=== PATIENT | female | born 1960 | race Caucasian/White ===

== ENCOUNTER → 2017-07-08 08:24 | Outpatient (POV) | payer BC, SELFPAY | PROVIDERS: Family Provider Internal Medicine; Visit Provider Nurse Practitioner Acute Care | DX: Z00.00 Encounter for general adult medical examination without abnormal findings (principal) ==

== ENCOUNTER → 2018-04-15 09:49 | Outpatient (CLI) | payer BC, SELFPAY ==
--- NOTE | 2018-04-15 09:50 | MM_ITS ---
MM Dig screening mamm BI w/CAD ORDERING PHYSICIAN : Paul Goodson MD PATIENT AGE: 58 years GENDER: Female COMPARISON: Bilateral mammogram March 20152016 INDICATION: ITS.REASON: SCREENING patient takes Premarin & estrogen. ( Estradiol)/. Previous cyst aspiration left breast. No new complaints. Family history. Aunt with breast cancer TECHNIQUE: Standard CC and MLO images were obtained. R2 CAD reviewed. Additional axillary cc views bilaterally included in helpful FINDINGS: Dense breast bilaterally decreased sensitivity of mammography.. Ultrasound can be useful compliment slight augment to mammography in breast of this dense character. However No discrete or significant new areas of concern. No unique or dominant mass . No suspicious calcifications. It The dense mammogram pattern is similar to previous studies with no focal new areas of concern. Follow-up in one year the adequate. IMPRESSION: . dense heterogeneous breast bilaterally decreases to the mammography but no significant new areas concern. Bilateral follow-up one year recommended BI-RADS Category: 2 Benign Finding(s) RECOMMENDED FOLLOW-UP: 1YR 1 YEAR FOLLOW-UP (A letter has been sent to the patient regarding results of the study.)
== END ==
PROVIDERS: PCP Internal Medicine; Visit Provider Obstetrics & Gynecology
DX: Z12.31 Encounter for screening mammogram for malignant neoplasm of breast (principal)
CPT/HCPCS: 77067

== ENCOUNTER → 2018-07-11 10:39 | Outpatient (CLI) | payer BC, SELFPAY ==
--- NOTE | 2018-07-11 10:46 | XR_ITS ---
EXAM: XR cervical spine 5V HISTORY: ITS.REASON: NECK PAIN, LT ARM PAIN ORDERING PHYSICIAN: Rashawn Ervin PATIENT AGE: 58 years COMPARISON: None FINDINGS: There is mild degenerative disc disease at C4-C5, C5-C6, and C6-C7. There are small endplate osteophytes at these levels with decrease in the disc spaces. There is mild foraminal narrowing on the left at C5-C6 and C6-C7. Facet hypertrophic changes are present from C4 to C7. No fracture or dislocation. No lytic or blastic change. No evidence of cervical rib. IMPRESSION: Degenerative disc disease with facet arthritic change as described above with mild foraminal narrowing on the left at C5-C6 and C6-C7
== END ==
PROVIDERS: PCP Internal Medicine; Visit Provider Internal Medicine
DX: M54.2 Cervicalgia (principal); M79.602 Pain in left arm
CPT/HCPCS: 72050

== ENCOUNTER → 2018-07-14 08:25 | Outpatient (POV) | payer BC, SELFPAY | PROVIDERS: Visit Provider Nurse Practitioner Acute Care | DX: Z00.00 Encounter for general adult medical examination without abnormal findings (principal) ==

== ENCOUNTER 2018-09-19 11:00 | Outpatient (RCR) | payer BC, SELFPAY ==
--- NOTE | 2018-09-02 09:35 | HMH.RHREAS ---
Rehab Reassessment Rehab OP Re-assessment Start: 09/02/18 09:16 Freq: Status: Active Protocol: Document 09/02/18 09:20 CELSOTRISTAN (Rec: 09/02/18 09:34 SOLANGE [id number]) Electronically Signed By Rogerio Montenegro, PT 09/02/18 09:20 Rehab Re-assessment Subjective Subjective PT REPORTS 4-7/10 L SIDED NECK PAIN ON VAS, AND FEELS 50% BETTER OVERALL SINCE I EVAL Objective Objective Notes AROM: CROM FLX 0-55, EXT 0-55, R SB 0-40, L SB 0-40, B ROT 0 -55 MMT: B DELTOID MM 4-4+/5 TTP: L UT 2-3/4, L SCALENE 3/4 , L SUBOCC. 2/4 Assessment Progress Assessment Slower Than Expected Assessment Notes PT W/SLIGHT IMPROVEMENTS IN ROM AND STRENGTH Patient goals met STG'S 6 LTG'S 06/24 Goals Not Met STG'S 08/20, LTG'S 12/22 Plan Plan PT TO CONT. W/SKILLED P.T. TO MAKE FURTHER IMPROVEMENTS IN ROM, STRENGTH, AND TTP TO ALLOW FOR OPTIMAL FUNCTION Frequency of Therapy 1-2X/WK Duration of therapy 3-4 WKS Time and Billing Re-Eval Time 15 Re-Eval Billing Units 1 PHYSICIAN CERTIFICATION: I certify the specified therapy services for Cintia Ritchie are required, authorized, and reviewed every 30 days.
== END 2018-09-19 11:05 | disposition home or self-care (01) ==
LOC: PT 11:00
PROVIDERS: Visit Provider Internal Medicine
DX: M54.2 Cervicalgia (principal); M79.645 Pain in left finger(s); R51 Headache
CPT/HCPCS: 97010; 97014; 97035; 97110; 97140; 97163; 97164; G0283

== ENCOUNTER → 2018-09-24 10:45 | Outpatient (CLI) | payer BC, SELFPAY ==
--- NOTE | 2018-09-24 11:00 | MR_ITS ---
MR cervical spine wo con, MR 3-d myelogram/MRCP HISTORY: PT states left side neck and shoulder pain since JUN. Pain also extends up into head at times. ITS.REASON: CERVICALGIA ORDERING PHYSICIAN: Rashawn Ervin PATIENT AGE: 58 years Comparison: X-RAY 07/11/18 TECHNIQUE: Standard multiplanar multiecho sequences are performed without contrast. 3-D MIP and myelographic images are also rendered and reviewed FINDINGS: There is normal alignment. There is straightening of the cervical lordosis which may be due to patient positioning or muscle spasm. The craniocervical junction has an unremarkable appearance. C2-C3: Unremarkable. C3-C4: Unremarkable. C4-C5: Mild degenerative disc disease. C5-C6: Degenerative disc disease with a bulging disc along with a left paracentral disc protrusion/disc osteophyte complex. There is narrowing of the canal at this level at 10 mm with minimal effacement along the aspect of the cord and moderate left lateral recess narrowing. C6-C7: Mild degenerative disc disease with minimal bulging disc slightly eccentric toward the right with mild right lateral recess narrowing. C7-T1: Unremarkable. IMPRESSION: 1. Degenerative disc disease at C5-C6 with a bulging disc along with a left paracentral disc protrusion/disc osteophyte complex causing narrowing of the canal at this level at 10 mm with minimal flattening of the cord and moderate left lateral recess narrowing. 2. Mild degenerative disc disease at C6-C7 with minimal bulging disc slightly eccentric toward the right with mild right lateral recess narrowing
== END ==
PROVIDERS: PCP Internal Medicine; Visit Provider Internal Medicine
DX: M54.2 Cervicalgia (principal)
CPT/HCPCS: 72141; 76376

== ENCOUNTER → 2018-10-07 14:47 | Outpatient (POV) | payer BC, SELFPAY ==
[2018-10-07 15:02] VITALS: BP 147/71; PULSE 77; RESP 18; O2SAT 98
--- NOTE | 2018-10-07 15:35 | HMH.PMCON ---
Assessment and Plan (1) Degenerative disc disease, cervical Current visit: Yes Status: Chronic Category: Medical Code(s): M50.30 - Other cervical disc degeneration, unspecified cervical region (2) Cervical radiculopathy Current visit: Yes Status: Chronic Category: Medical Code(s): M54.12 - Radiculopathy, cervical region - Assessment and plan all Dx Assessment and Plan for all problems:: We will schedule the patient for C5-C6 cervical epidural steroid injection. I believe given her symptomology it would be beneficial. Patient is not on any anticoagulation therapy. I will follow-up with her after injection reassess her symptoms at that time. She is been instructed to call the office if she has any issues prior to her next appointment. Dr. Nuñez has reviewed this note and agrees with this plan of care. This note was dictated using voice recognition software and may contain errors or omissions HPI - Data of Consult Consult date: 10/07/18 Requesting Physician: Patti York APRN Primary Care Provider: Rashawn Ervin - Consult Narrative Reason for consult: Neck pain, left arm pain History of present illness: Ms. Ritchie is a 58 year old female who presents today for consultation in regards to her neck pain. She rates her pain a 4 out of 10. She states it is constant and radiating down her left arm. She has difficulty with twisting her neck. Patient has continued physical therapy with minimal relief. She has been on anti-inflammatories. Patient does have an MRI showing degenerative disc disease at C5-C6 with a bulging disc along with a left paracentral disc protrusion. Patient has not tried any injective therapies she is failed over 6 months of conservative therapy including physical therapy. She is continuing a home stretching program and is on anti-inflammatories. CC: Patti York APRN [facility] History I have reviewed the patient's past medical history: Yes Medical History: Reports:: Hyperlipidemia, Palpitations Other Medical History: Reports: Arthritis Other Surgeries: Yes: Hernia Repair, Hysterectomy-Total Amputation: No Fractures: No - *Social History Smoking Status: Never smoker Alcohol Intake: never Substance Use Type: denies use *Occupational Status:: other Housing: house *Travel in the last 8 weeks: None - Psychiatric History Expresses thoughts of harming self/others: None Suicide Plan Description: No Plan Family Hx:: Unable to obtain Review of Systems - Review of Systems ROS General: no recent weight change, no fever, no sleep disturbances Respiratory: no cough, no shortness of air, no recurring pulmonary infections Cardiovascular/Peripheral Vascular: No chest pain, No palpitations, no edema, no shortness of breath. Gastrointestinal: no incontinence, normal bowel movements reported Genitourinary: no incontinence Musculoskeletal: Neck pain, arm pain Psychiatric: normal mood/ affect, Neurological: [denies weakness in extremities], [denies balance issues] Meds Home Medications Medication Instructions Recorded Confirmed Type acyclovir 400 mg tablet 400 mg PO DAILY tab 04/03/18 04/03/18 History ascorbic acid (vitamin C) 1,000 mg 1 g PO DAILY tab 04/03/18 04/03/18 History tablet aspirin 81 mg tablet,delayed 81 mg PO DAILY 04/03/18 04/03/18 History release atorvastatin 40 mg tablet 40 mg PO DAILY 04/03/18 04/03/18 History buspirone 10 mg tablet 10 mg PO BID 04/03/18 04/03/18 History calcium carbonate 600 mg calcium 600 mg PO DAILY tab 04/03/18 04/03/18 History (1,500 mg) tablet cetirizine 10 mg tablet 10 mg PO DAILY 04/03/18 04/03/18 History cyanocobalamin (vit B-12) 5,000 5,000 mcg SUBLINGUAL DAILY 04/03/18 04/03/18 History mcg sublingual tablet estradiol 1 mg tablet 1 mg PO DAILY 90 Days #90 tab 04/03/18 04/03/18 Rx glucosam 750 mg-chondroi 100 See Rx Instructions PO DAILY 04/03/18 04/03/18 History mg-hyalur 1.65 mg-CF borate 108 mg tab
--- NOTE | 2018-10-07 15:38 | P.CONS_ITS ---
Assessment and Plan (1) Degenerative disc disease, cervical Current visit: Yes Status: Chronic Category: Medical Code(s): M50.30 - Other cervical disc degeneration, unspecified cervical region (2) Cervical radiculopathy Current visit: Yes Status: Chronic Category: Medical Code(s): M54.12 - Radiculopathy, cervical region - Assessment and plan all Dx Assessment and Plan for all problems:: We will schedule the patient for C5-C6 cervical epidural steroid injection. I believe given her symptomology it would be beneficial. Patient is not on any anticoagulation therapy. I will follow-up with her after injection reassess her symptoms at that time. She is been instructed to call the office if she has any issues prior to her next appointment. Dr. Nuñez has reviewed this note and agrees with this plan of care. This note was dictated using voice recognition software and may contain errors or omissions HPI - Data of Consult Consult date: 10/07/18 Requesting Physician: Patti York APRN Primary Care Provider: Rashawn Ervin - Consult Narrative Reason for consult: Neck pain, left arm pain History of present illness: Ms. Ritchie is a 58 year old female who presents today for consultation in regards to her neck pain. She rates her pain a 4 out of 10. She states it is constant and radiating down her left arm. She has difficulty with twisting her neck. Patient has continued physical therapy with minimal relief. She has been on anti-inflammatories. Patient does have an MRI showing degenerative disc disease at C5-C6 with a bulging disc along with a left paracentral disc protrusion. Patient has not tried any injective therapies she is failed over 6 months of conservative therapy including physical therapy. She is continuing a home stretching program and is on anti-inflammatories. CC: Patti York APRN [facility] History I have reviewed the patient's past medical history: Yes Medical History: Reports:: Hyperlipidemia, Palpitations Other Medical History: Reports: Arthritis Other Surgeries: Yes: Hernia Repair, Hysterectomy-Total Amputation: No Fractures: No - *Social History Smoking Status: Never smoker Alcohol Intake: never Substance Use Type: denies use *Occupational Status:: other Housing: house *Travel in the last 8 weeks: None - Psychiatric History Expresses thoughts of harming self/others: None Suicide Plan Description: No Plan Family Hx:: Unable to obtain Review of Systems - Review of Systems ROS General: no recent weight change, no fever, no sleep disturbances Respiratory: no cough, no shortness of air, no recurring pulmonary infections Cardiovascular/Peripheral Vascular: No chest pain, No palpitations, no edema, no shortness of breath. Gastrointestinal: no incontinence, normal bowel movements reported Genitourinary: no incontinence Musculoskeletal: Neck pain, arm pain Psychiatric: normal mood/ affect, Neurological: [denies weakness in extremities], [denies balance issues] Meds Home Medications Medication Instructions Recorded Confirmed Type acyclovir 400 mg tablet 400 mg PO DAILY tab 04/03/18 04/03/18 History ascorbic acid (vitamin C) 1,000 mg 1 g PO DAILY tab 04/03/18 04/03/18 History tablet aspirin 81 mg tablet,delayed 81 mg PO DAILY 04/03/18 04/03/18 History release atorvastatin 40 mg tablet 40 mg PO DAILY 04/03/18 04/03/18 History buspirone 10 mg tablet 10 mg PO BID 04/03/18
== END ==
PROVIDERS: PCP Internal Medicine; Visit Provider Clinical Nurse Specialist Family Health
DX: M50.10 Cervical disc disorder with radiculopathy, unspecified cervical region (principal)
CPT/HCPCS: 99202

== ENCOUNTER → 2018-11-03 15:02 | Outpatient (POV) | payer BC, SELFPAY ==
[2018-11-03 15:19] VITALS: BP 154/72; PULSE 67; RESP 18; O2SAT 98; BMI 25.0
--- NOTE | 2018-11-03 15:35 | HMH.PAINSOAP ---
[facility] Pain Management SOAP Note Subjective:: Presents today today for follow-up after her first cervical epidural steroid injection. Patient is doing much better. Patient is gotten 80% relief of her symptoms she rates her pain a 2 out of 10 today. Patient and I discussed repeating this to see if we can get some additional benefit. Is continuing a home stretching program and anti-inflammatories. ROS General: no recent weight change, no fever, no sleep disturbances Respiratory: no cough, no shortness of air, no recurring pulmonary infections Cardiovascular/Peripheral Vascular: No chest pain, No palpitations, no edema, no shortness of breath. Gastrointestinal: no incontinence, normal bowel movements reported Genitourinary: no incontinence Musculoskeletal: [Neck pain, left arm pain Psychiatric: normal mood/ affect Neurological: [denies weakness in extremities], [denies balance issues] Objective:: Physical Exam General: Alert and oriented x3, no acute distress, pleasant and cooperative, [on room air] Lungs: Resps E/U, Symmetrical chest expansion, Eyes: PERRL Musculoskeletal: Flexion and extension of cervical spine somewhat guarded secondary to pain, deep tendon reflexes normal, strength in upper and lower extremities [5/5], normal gait noted Neurological: speech clear, power generation technician equal, no gross sensory deficits Assessment:: Degenerative disc disease cervical spine with cervical radiculopathy Plan:: We will schedule the patient for C5-C6 cervical epidural steroid injection. I believe given the efficacy of this in the past it would be beneficial. I will follow-up with the patient and reassess her symptoms after her injection. She is not on any anticoagulation therapy. Dr. Nuñez has reviewed this note and agrees with this plan of care. This note was dictated using voice recognition software and may contain errors or omissions
--- NOTE | 2018-11-03 15:38 | P.CONS_ITS ---
[facility] Pain Management SOAP Note Subjective:: Presents today today for follow-up after her first cervical epidural steroid injection. Patient is doing much better. Patient is gotten 80% relief of her symptoms she rates her pain a 2 out of 10 today. Patient and I discussed repeating this to see if we can get some additional benefit. Is continuing a home stretching program and anti-inflammatories. ROS General: no recent weight change, no fever, no sleep disturbances Respiratory: no cough, no shortness of air, no recurring pulmonary infections Cardiovascular/Peripheral Vascular: No chest pain, No palpitations, no edema, no shortness of breath. Gastrointestinal: no incontinence, normal bowel movements reported Genitourinary: no incontinence Musculoskeletal: [Neck pain, left arm pain Psychiatric: normal mood/ affect Neurological: [denies weakness in extremities], [denies balance issues] Objective:: Physical Exam General: Alert and oriented x3, no acute distress, pleasant and cooperative, [on room air] Lungs: Resps E/U, Symmetrical chest expansion, Eyes: PERRL Musculoskeletal: Flexion and extension of cervical spine somewhat guarded secondary to pain, deep tendon reflexes normal, strength in upper and lower extremities [5/5], normal gait noted Neurological: speech clear, rescue boat operator equal, no gross sensory deficits Assessment:: Degenerative disc disease cervical spine with cervical radiculopathy Plan:: We will schedule the patient for C5-C6 cervical epidural steroid injection. I believe given the efficacy of this in the past it would be beneficial. I will follow-up with the patient and reassess her symptoms after her injection. She is not on any anticoagulation therapy. Dr. Nuñez has reviewed this note and agrees with this plan of care. This note was dictated using voice recognition software and may contain errors or omissions
== END ==
PROVIDERS: PCP Internal Medicine; Visit Provider Clinical Nurse Specialist Family Health
DX: M50.10 Cervical disc disorder with radiculopathy, unspecified cervical region (principal)
CPT/HCPCS: 99212

== ENCOUNTER → 2018-12-08 12:30 | Outpatient (POV) | payer BC, SELFPAY ==
--- NOTE | 2018-12-08 13:10 | HMH.PAINSOAP ---
[facility] Pain Management SOAP Note Subjective:: Patient is an extremely pleasant 58-year-old white female who presents today for follow-up after second cervical epidural steroid injection. Patient has had a relief of the numbness and tingling in her left arm. Patient is now having difficulty looking down for longer periods of time she is been crocheting which is painful for her. She does have palpable trigger points in her cervical paraspinous on the left side. Patient and I discussed trigger point injections. She rates her pain a 3 out of 10 today but it can go up to an 8 out of 10. ROS General: no recent weight change, no fever, no sleep disturbances Respiratory: no cough, no shortness of air, no recurring pulmonary infections Cardiovascular/Peripheral Vascular: No chest pain, No palpitations, no edema, no shortness of breath. Gastrointestinal: no incontinence, normal bowel movements reported Genitourinary: no incontinence Musculoskeletal: Myofascial pain Psychiatric: normal mood/ affect Neurological: [denies weakness in extremities], [denies balance issues] Objective:: Physical Exam General: Alert and oriented x3, no acute distress, pleasant and cooperative, Lungs: Resps E/U, Symmetrical chest expansion, Eyes: PERRL Musculoskeletal: Flexion and extension of cervical spine somewhat guarded secondary to pain, deep tendon reflexes normal, strength in upper and lower extremities [5/5], normal gait noted, trigger points palpated in left cervical paraspinous Neurological: speech clear, hospitality services manager equal, no gross sensory deficits Assessment:: Myofascial pain syndrome, degenerative disc disease cervical spinal cervical radiculopathy symptoms Plan:: We will schedule left cervical paraspinous trigger point for the patient. I believe it would be beneficial for her. She is gotten good relief from her epidurals in regards to her tingling. I will follow-up with her after her injection and reassess her symptoms at that time. Dr. Nuñez has reviewed this note and agrees with this plan of care. This note was dictated using voice recognition software and may contain errors or omissions
--- NOTE | 2018-12-08 13:14 | P.CONS_ITS ---
[facility] Pain Management SOAP Note Subjective:: Patient is an extremely pleasant 58-year-old white female who presents today for follow-up after second cervical epidural steroid injection. Patient has had a relief of the numbness and tingling in her left arm. Patient is now having difficulty looking down for longer periods of time she is been crocheting which is painful for her. She does have palpable trigger points in her cervical paraspinous on the left side. Patient and I discussed trigger point injections. She rates her pain a 3 out of 10 today but it can go up to an 8 out of 10. ROS General: no recent weight change, no fever, no sleep disturbances Respiratory: no cough, no shortness of air, no recurring pulmonary infections Cardiovascular/Peripheral Vascular: No chest pain, No palpitations, no edema, no shortness of breath. Gastrointestinal: no incontinence, normal bowel movements reported Genitourinary: no incontinence Musculoskeletal: Myofascial pain Psychiatric: normal mood/ affect Neurological: [denies weakness in extremities], [denies balance issues] Objective:: Physical Exam General: Alert and oriented x3, no acute distress, pleasant and cooperative, Lungs: Resps E/U, Symmetrical chest expansion, Eyes: PERRL Musculoskeletal: Flexion and extension of cervical spine somewhat guarded secondary to pain, deep tendon reflexes normal, strength in upper and lower extremities [5/5], normal gait noted, trigger points palpated in left cervical paraspinous Neurological: speech clear, ice skating coach equal, no gross sensory deficits Assessment:: Myofascial pain syndrome, degenerative disc disease cervical spinal cervical radiculopathy symptoms Plan:: We will schedule left cervical paraspinous trigger point for the patient. I believe it would be beneficial for her. She is gotten good relief from her epidurals in regards to her tingling. I will follow-up with her after her injection and reassess her symptoms at that time. Dr. Nuñez has reviewed this note and agrees with this plan of care. This note was dictated using voice recognition software and may contain errors or omissions
[2018-12-08 13:23] VITALS: BP 148/74; PULSE 77; RESP 18; O2SAT 98; BMI 25.0
== END ==
PROVIDERS: PCP Internal Medicine; Visit Provider Clinical Nurse Specialist Family Health
DX: M79.18 Myalgia, other site (principal); M50.10 Cervical disc disorder with radiculopathy, unspecified cervical region
CPT/HCPCS: 99212

== ENCOUNTER → 2019-01-06 10:41 | Outpatient (POV) | payer BC, SELFPAY ==
--- NOTE | 2019-01-06 11:48 | HMH.PAINSOAP ---
[facility] Pain Management SOAP Note Subjective:: Patient is a pleasant 58-year-old white female who presents today for follow-up. Patient is being treated for neck pain radiating in to her head causing headaches.. Patient has had trigger point injections, dry needling, along with cervical epidural steroid injections. She has had limited relief with these injections. She says that she is continuing to have pain in the upper part of her neck radiating into her head. She says it is worse when she is turning her neck. She also says I do not know what triggers it . Patient says she has some good days and some bad days. She says that she got about 40% relief with her previous injections. She does rate her pain a 2 out of 10 today. She does say that yesterday, however, her pain was a 10 out of 10. She would like to discuss other possible options for pain relief. Review of Systems General: No recent weight changes, no fever, no sleep disturbances Respiratory: No cough, no shortness of air, no recurring pulmonary infections Cardiovascular/peripheral vascular: No chest pain, no palpitations, no edema, no shortness of breath Gastrointestinal: No new onset incontinence, normal bowel movements reported Genitourinary: No new onset incontinence Musculoskeletal: Neck pain Psychiatric: Normal mood/affect Neurological: [Denies weakness in extremities], [denies balance issues] Objective:: Physical exam General: Alert and oriented x3, no acute distress, pleasant and cooperative, [on room air] Lungs: Respirations even and unlabored, symmetrical chest expansion Eyes: PERRL Musculoskeletal: Flexion and extension of [cervical] spine somewhat guarded secondary to pain, deep tendon reflexes normal, strength in upper and lower extremities [5/5], [abnormal gait noted] Neurological: Speech clear, tractor operator laser leveling equal, no gross sensory deficit Assessment:: Myofascial pain syndrome, degenerative disc disease cervical spine with cervical radiculopathy symptoms. Plan:: We will schedule the patient for bilateral occipital nerve block. She is not on any anticoagulation therapy. She is continuing with a home stretching program and anti-inflammatories. We will see her back after her procedure to reassess her symptoms at that time. She has been instructed to call the office if she has any concerns prior to her next appointment.
[2019-01-06 11:58] VITALS: BP 138/69; PULSE 74; RESP 18; O2SAT 98; BMI 25.0
== END ==
PROVIDERS: PCP Internal Medicine; Visit Provider Clinical Nurse Specialist Family Health
DX: M79.18 Myalgia, other site (principal); M50.10 Cervical disc disorder with radiculopathy, unspecified cervical region
CPT/HCPCS: 99212

== ENCOUNTER → 2019-02-23 09:34 | Outpatient (POV) | payer BC, SELFPAY ==
[2019-02-23 10:06] VITALS: BP 126/63; PULSE 77; RESP 18; O2SAT 98; BMI 24.3
--- NOTE | 2019-02-23 14:45 | P.CONS_ITS ---
[facility] Pain Management SOAP Note Subjective:: Patient is a pleasant 59-year-old white female who presents today for follow-up after left occipital nerve block. She is rates her pain a 2 out of 10 states she is doing better. Patient has thought about a neurostimulator however at this time she is doing well with the injections. We also discussed potentially utilizing yoga and cervical traction. Patient has doing much better than she was when she first arrived stating that all of her radicular symptoms in her arm have dissipated most of her pain is in the left side and she has quite a few headaches. ROS General: no recent weight change, no fever, no sleep disturbances Respiratory: no cough, no shortness of air, no recurring pulmonary infections Cardiovascular/Peripheral Vascular: No chest pain, No palpitations, no edema, no shortness of breath. Gastrointestinal: no incontinence, normal bowel movements reported Genitourinary: no incontinence Musculoskeletal: Neck pain, headaches Psychiatric: normal mood/ affect, Neurological: [denies weakness in extremities], [denies balance issues] Objective:: Physical Exam General: Alert and oriented x3, no acute distress, pleasant and cooperative, [on room air] Lungs: Resps E/U, Symmetrical chest expansion, Eyes: PERRL Musculoskeletal: Flexion and extension of cervical spine somewhat guarded secondary to pain, deep tendon reflexes normal, strength in upper and lower extremities [5/5], normal gait noted Neurological: speech clear, medical/surgery registered nurse equal, no gross sensory deficits Assessment:: Occipital neuralgia, neck pain Plan:: We will schedule repeat left occipital nerve block given the efficacy of this in the past. I will follow-up with the patient after her injection reassess her symptoms at that time she is been instructed to call the office if she has any issues prior to her next appointment. Dr. Nuñez has reviewed this note and agrees with this plan of care. This note was dictated using voice recognition software and may contain errors or omissions Pain Management Hx Components *Have you ever received a pneumonia vaccine?: Yes *Have you received a flu vaccine this season?: Yes - *Social History *Occupational Status:: other *Travel in the last 8 weeks: None
== END ==
PROVIDERS: PCP Internal Medicine; Visit Provider Clinical Nurse Specialist Family Health
DX: M54.81 Occipital neuralgia (principal)
CPT/HCPCS: 99212

== ENCOUNTER → 2019-03-31 09:12 | Outpatient (POV) | payer BC, SELFPAY ==
[2019-03-31 09:30] VITALS: BP 134/70; PULSE 72; RESP 18; O2SAT 97; BMI 20.7
--- NOTE | 2019-03-31 15:18 | HMH.PAINSOAP ---
[facility] Pain Management SOAP Note Subjective:: Patient is a very pleasant 59-year-old white female who presents today for follow-up after left occipital nerve block. Patient is doing well rating her pain today a 2 out of 10. Overall she is done extremely well with this injection. She she is having some pains begin to return. We discussed repeating this mid April. She is interested in pursuing that. She is not on any anticoagulation therapy. ROS General: no recent weight change, no fever, no sleep disturbances Respiratory: no cough, no shortness of air, no recurring pulmonary infections Cardiovascular/Peripheral Vascular: No chest pain, No palpitations, no edema, no shortness of breath. Gastrointestinal: no new onset incontinence, normal bowel movements reported Genitourinary: no new onset incontinence Musculoskeletal: Occipital neuralgia Psychiatric: normal mood/ affect, Neurological: [denies new onset weakness in extremities], [denies new onset balance issues] Objective:: Physical Exam General: Alert and oriented x3, no acute distress, pleasant and cooperative, [on room air] Lungs: Resps E/U, Symmetrical chest expansion, Eyes: PERRL Musculoskeletal: Flexion and extension of cervical spine somewhat guarded secondary to pain, deep tendon reflexes normal, strength in upper and lower extremities [5/5], normal gait noted Neurological: speech clear, presales senior specialist equal, no gross sensory deficits Assessment:: Occipital neuralgia Plan:: We will plan on a left occipital nerve block in the middle of April. Patient's been instructed to call the office if she has any issues prior to her next appointment. Dr. Nuñez has reviewed this note and agrees with this plan of care. This note was dictated using voice recognition software and may contain errors or omissions [facility] History I have reviewed the patient's past medical history: Yes Medical History: Reports:: Hyperlipidemia, Palpitations Denies:: Cancer, Diabetes Mellitus Type 1, Diabetes Mellitus Type 2, MRSA, Seizures *Have you ever received a pneumonia vaccine?: No *Have you received a flu vaccine this season?: No Other Medical History: Reports: Arthritis Other Surgeries: Yes: Hernia Repair, Hysterectomy-Total, Hysterectomy-Partial Amputation: No Fractures: No - *Social History Smoking Status: Never smoker Alcohol Intake: never Substance Use Type: denies use *Occupational Status:: employed Housing: house Household Members: family *Travel in the last 8 weeks: None Family Hx:: Unable to obtain
== END ==
PROVIDERS: PCP Internal Medicine; Visit Provider Clinical Nurse Specialist Family Health
DX: M54.81 Occipital neuralgia (principal)
CPT/HCPCS: 99212

== ENCOUNTER → 2019-04-21 07:52 | Outpatient (CLI) | payer BC, SELFPAY ==
--- NOTE | 2019-04-21 07:56 | MM_ITS ---
PROCEDURE: MM DIG SCREENING MAMM BI W/CAD CLINICAL INDICATION: screening There is no personal or family history of breast cancer COMPARISON: DMDXUL DIG MAMM-DX UNI-LT W/CAD from 11/29/2016 DMSB DIG MAMM-SCREEN ROSENDO W/CAD from 04/10/2017 [facility] MM Dig screening mamm BI w/CAD from 04/15/2018 TECHNIQUE: Standard CC and MLO images were obtained. R2 CAD reviewed. FINDINGS: Prominent diffuse somewhat heterogenic fibroglandular densities are seen throughout both breasts somewhat lessening the sensitivity of mammography. The findings are bilateral and symmetrical. There is minimal arterial calcification right breast and benign-appearing microcalcifications left breast. There is no new or suspicious lesion in either breast and no suspicious microcalcifications. IMPRESSION: Stable moderately dense parenchymal pattern with no suspicious lesions seen BI-RAD Category: 2 Benign Finding(s) FOLLOW-UP: 1YR 1 Year Follow-up (A letter has been sent to the patient regarding results of the study.) Dictated by: Dr. Boby Plascencia MD 04/21/2019 17:[address] Boby Plascencia MD in [place] 04/21/2019 17:00
--- NOTE | 2019-04-21 07:56 | XR_ITS ---
PROCEDURE: XR DEXA AXIAL SKELETON CLINICAL HISTORY: screening COMPARISON: No exams were available for comparison FINDINGS: The L1-L4 density is 1.377 grams/centimeters sq with a T-score of 1.6 which is normal. In the lowest density in the hips is in the right femoral neck 1.004 grams/centimeters sq with a T-score of -0.2 which is within normal limits. IMPRESSION: Normal bone density with low fracture risk. Suggest follow-up exam April 2021 Dictated by: Sravan Graff MD 04/21/2019 18:41 Electronically signed by Sravan Graff MD in [place] 04/21/2019 18:41
== END ==
PROVIDERS: PCP Internal Medicine; Visit Provider Obstetrics & Gynecology
DX: Z12.31 Encounter for screening mammogram for malignant neoplasm of breast (principal); Z78.0 Asymptomatic menopausal state; Z13.820 Encounter for screening for osteoporosis
CPT/HCPCS: 77067; 77080

== ENCOUNTER → 2019-05-25 13:05 | Outpatient (POV) | payer BC, SELFPAY ==
[2019-05-25 13:20] VITALS: BP 151/59; PULSE 72; RESP 18; O2SAT 98; BMI 23.5
--- NOTE | 2019-05-25 13:39 | HMH.PAINSOAP ---
[facility] Pain Management SOAP Note Subjective:: Patient is a pleasant 59-year-old white female who presents today for follow-up after left occipital nerve block. Patient overall doing well. Her most of her pain is now in her left knee. Patient has had surgery on this knee before. Gets a burning pain on the side portion of her knee. Patient does not have any recent diagnostic imaging. Patient rates her pain a 2 out of 10. Patient is tried and failed physical therapy and anti-inflammatories. ROS General: no recent weight change, no fever, no sleep disturbances Respiratory: no cough, no shortness of air, no recurring pulmonary infections Cardiovascular/Peripheral Vascular: No chest pain, No palpitations, no edema, no shortness of breath. Gastrointestinal: no new onset incontinence, normal bowel movements reported Genitourinary: no new onset incontinence Musculoskeletal: Left knee pain Psychiatric: normal mood/ affect Neurological: [denies new onset weakness in extremities], [denies new onset balance issues] Objective:: Physical Exam General: Alert and oriented x3, no acute distress, pleasant and cooperative, [on room air] Lungs: Resps E/U, Symmetrical chest expansion, Eyes: PERRL Musculoskeletal: Range of motion left knee somewhat guarded secondary to pain, deep tendon reflexes normal, strength in upper and lower extremities [5/5], [abnormal gait noted] Neurological: speech clear, petroleum terminal plant operator equal, no gross sensory deficits Assessment:: Left knee pain Plan:: We will set up a left genicular block for the patient. I do believe given her symptomology it would be beneficial. I will follow-up with her after her injection reassess her symptoms at that time she is been instructed to call the office prior to next appointment. Also get a left knee x-ray to help determine pathology. Dr. Nuñez has reviewed this note and agrees with this plan of care. This note was dictated using voice recognition software and may contain errors or omissions [facility] History I have reviewed the patient's past medical history: Yes Medical History: Reports:: Hyperlipidemia, Hypertension, Palpitations Denies:: Cancer, Diabetes Mellitus Type 1, Diabetes Mellitus Type 2, MRSA, Seizures *Have you ever received a pneumonia vaccine?: Yes *Have you received a flu vaccine this season?: Yes Other Medical History: Reports: Arthritis Other Surgeries: Yes: Hernia Repair, Hysterectomy-Total, Hysterectomy-Partial Amputation: No Fractures: No - *Social History Smoking Status: Never smoker Alcohol Intake: never Alcohol Intake Frequency:: other Substance Use Type: denies use *Occupational Status:: other Housing: house Household Members: family *Travel in the last 8 weeks: None Family Hx:: Unable to obtain
--- NOTE | 2019-05-25 13:52 | XR_ITS ---
PROCEDURE: XR KNEE LT 3V CLINICAL INDICATION: LT KNEE PAIN COMPARISON: [id number] KNEE-4 OR 5 VIEWS-LT from 11/14/2016 [id number] KNEE-4 OR 5 VIEWS-RT from 11/14/2016 FINDINGS: No fracture or dislocation. No lytic or blastic change. There is normal mineralization. There is tricompartmental osteoarthritis greatest at the patellofemoral and medial compartment joint spaces. Other findings:There is no significant joint effusion. IMPRESSION: Osteoarthritis as described with no acute bone pathology. Dictated by: Rashawn Champagne 05/25/2019 14:15 Electronically signed by Rashawn Champagne in [place] 05/25/2019 14:15
== END ==
PROVIDERS: PCP Internal Medicine; Visit Provider Clinical Nurse Specialist Family Health
DX: M25.562 Pain in left knee (principal)
CPT/HCPCS: 73562; 99212

== ENCOUNTER → 2019-07-06 13:31 | Outpatient (POV) | payer BC, SELFPAY ==
[2019-07-06 14:40] VITALS: BP 133/75; PULSE 76; RESP 18; O2SAT 99; BMI 23.5
--- NOTE | 2019-07-07 12:21 | P.CONS_ITS ---
[facility] Pain Management SOAP Note Subjective:: Patient is a pleasant 59-year-old white female who presents today for follow-up after a left knee genicular block. Patient states that it was 9 been beneficial. Patient has had issues with her left knee on and off intermittently. Patient has not seen a orthopedic surgeon recently. I am curious if she may be a candidate for rooster comb or Synvisc injections. We will send her to Dr. Cota for an evaluation. Patient rates her pain a 6 out of 10. ROS General: no recent weight change, no fever, no sleep disturbances Respiratory: no cough, no shortness of air, no recurring pulmonary infections Cardiovascular/Peripheral Vascular: No chest pain, No palpitations, no edema, no shortness of breath. Gastrointestinal: no new onset incontinence, normal bowel movements reported Genitourinary: no new onset incontinence Musculoskeletal: Left knee pain Psychiatric: normal mood/ affect, Neurological: [denies new onset weakness in extremities], [denies new onset balance issues] Objective:: Physical Exam General: Alert and oriented x3, no acute distress, pleasant and cooperative, [on room air] Lungs: Resps E/U, Symmetrical chest expansion, Eyes: PERRL Musculoskeletal: Range of motion left knee somewhat guarded secondary to pain, deep tendon reflexes normal, strength in upper and lower extremities [5/5], [abnormal gait noted] Neurological: speech clear, optimization engineer equal, no gross sensory deficits Assessment:: Left knee pain with degenerative osteoarthritis Plan:: We will send the patient to Dr. Cota she is a candidate for booster, or Synvisc injections. I will follow-up with the patient after this reassess her symptoms at that time she is been instructed to call the office if she has any issues prior to her next appointment. Dr. Nuñez has reviewed this note and agrees with this plan of care. This note was dictated using voice recognition software and may contain errors or omissions [facility] History I have reviewed the patient's past medical history: Yes Medical History: Reports:: Hyperlipidemia, Hypertension, Palpitations Denies:: Cancer, Diabetes Mellitus Type 1, Diabetes Mellitus Type 2, MRSA, Seizures *Have you ever received a pneumonia vaccine?: Yes *Have you received a flu vaccine this season?: Yes Other Medical History: Reports: Arthritis Other Surgeries: Yes: Hernia Repair, Hysterectomy-Total, Hysterectomy-Partial Amputation: No Fractures: No - *Social History Smoking Status: Never smoker Alcohol Intake: never Alcohol Intake Frequency:: other Substance Use Type: denies use *Occupational Status:: other Housing: house Household Members: spouse, family *Travel in the last 8 weeks: None Family Hx:: Unable to obtain
== END ==
PROVIDERS: PCP Internal Medicine; Visit Provider Clinical Nurse Specialist Family Health
DX: M17.12 Unilateral primary osteoarthritis, left knee (principal); E78.5 Hyperlipidemia, unspecified; I10 Essential (primary) hypertension; R00.2 Palpitations; Z90.710 Acquired absence of both cervix and uterus
CPT/HCPCS: 99212

== ENCOUNTER → 2019-07-21 10:42 | Outpatient (CLI) | payer BC, SELFPAY ==
--- NOTE | 2019-07-21 10:47 | XR_ITS ---
PROCEDURE: XR KNEE LT 4V CLINICAL INDICATION: left knee pain Medial knee pain COMPARISON: [id number] KNEE-4 OR 5 VIEWS-LT from 11/14/2016 [id number] KNEE-4 OR 5 VIEWS-RT from 11/14/2016 XR KNEE LT 3V from 05/25/2019 FINDINGS: No fracture or dislocation. No lytic or blastic change. There is normal mineralization. Minimal osteoarthritic change is present with minimal osteoarthritis involving all 3 compartments and mild spurring of tibial spines. May be a small suprapatellar effusion. The osteoarthritis may be slightly worse compared to 11/14/2016. Other findings:None. IMPRESSION: Mild osteoarthritic changes with small suprapatellar effusion Dictated by: Sravan Graff MD 07/21/2019 18:45 Electronically signed by Sravan Graff MD in [place] 07/21/2019 18:45
== END ==
PROVIDERS: PCP Internal Medicine; Visit Provider Orthopaedic Surgery
DX: M25.562 Pain in left knee (principal)
CPT/HCPCS: 73564

== ENCOUNTER → 2019-08-10 09:18 | Outpatient (POV) | payer BC, SELFPAY | PROVIDERS: PCP Nurse Practitioner Family; Visit Provider Nurse Practitioner Family | DX: Z00.00 Encounter for general adult medical examination without abnormal findings (principal) ==

== ENCOUNTER → 2019-08-21 08:32 | Outpatient (CLI) | payer BC, SELFPAY ==
--- NOTE | 2019-08-21 08:33 | MR_ITS ---
PROCEDURE: MR KNEE LT WO CON CLINICAL INDICATION: evaluate for mensical tear Left knee pain, previous knee surgery, pain medially, knee instability COMPARISON: XR KNEE LT 4V from 07/21/2019 TECHNIQUE: Routine multiplanar multi echo sequences are performed without gadolinium enhancement. FINDINGS: The cruciate ligaments, collateral ligaments, patellar tendon, and quadriceps tendon are intact. There is a complex tear in the posterior horn medial meniscus which extends to the body of the medial meniscus. The anterior horn medial meniscus is unremarkable. The lateral meniscus has an unremarkable appearance. The patellar cartilage is preserved. There is a small knee joint effusion. Mild osteoarthritic changes are present involving the medial and lateral compartment and patellofemoral joint. There is a small area of increased T2 signal in the subarticular region of the medial femoral condyle nonspecific with slight decreased T1 signal in this area as well and could be due to early osteochondrosis. IMPRESSION: 1. Nondisplaced complex tear of the posterior horn of the medial meniscus extending into the body. 2. Osteoarthritic change with small knee joint effusion and possible early osteochondrosis versus edema from the underlying arthritic change of the medial femoral condyle Dictated by: Sravan Graff MD 08/22/2019 07:17 Electronically signed by Sravan Graff MD in [place] 08/22/2019 07:17
== END ==
PROVIDERS: PCP Internal Medicine; Visit Provider Orthopaedic Surgery
DX: M25.562 Pain in left knee (principal); G89.29 Other chronic pain; Z87.828 Personal history of other (healed) physical injury and trauma
CPT/HCPCS: 73721

== ENCOUNTER → 2019-10-31 09:00 | Outpatient (CLI) | payer BC, SELFPAY ==
--- NOTE | 2019-10-31 09:23 | ECG_ITS ---
APPROVED REPORT Exam: Resting ECG HR:65 bpm ECG Measurements Heart Rate 65 AXES LA 176 P 81 QRSd 74 QRS 65 QT 368 T 71 QTc 382 <Conclusion> Normal sinus rhythm Poor r wave progression Abnormal ECG Electronically signed by : Jorge Pastor, 11/02/2019 06:50:06
[2019-10-31 09:31] LABS: Basophils % 0.8 % (0.1-2.0); Eosinophils # 0.1 K/mm3 (0.0-0.4); Eosinophils % 2.3 % (0.1-12.0); Hematocrit 41.1 % (37.0-47.0); Hemoglobin 13.5 g/dL (12.2-16.2); Lymphocytes # 1.6 K/mm3 (0.7-4.5); Lymphocytes % 34.2 % (10-50); Mean Corpuscular HGB Conc 32.7 g/dL (31.8-35.4); Mean Corpuscular Hemoglobin 28.8 pg (27.0-31.2); Mean Corpuscular Volume 87.8 fl (81-99); Mean Platelet Volume 7.7 fl (7.4-10.4); Monocytes # 0.3 K/mm3 (0.1-1.0); Monocytes % 7.1 % (1.7-9.3); Neutrophils # 2.7 K/mm3 (1.8-7.8); Neutrophils % 55.5 % (37.0-80.0); Platelet Count 266 K/mm3 (142-424); Red Blood Count 4.68 M/mm3 (4.20-5.40); Red Cell Distribution Width 13.7 % (11.5-17.5); White Blood Count 4.8 K/mm3 (4.8-10.8)
[2019-10-31 09:42] LABS: Chloride 103 mmol/L (98-107); Potassium 4.7 mmoL/L (3.5-5.1); Sodium 136 mmol/L (136-145)
[2019-10-31 09:45] LABS: Anion Gap 9.7 mEq/L (5-15); Blood Urea Nitrogen 14 mg/dl (7-17); Calcium 9.5 mg/dl (8.4-10.2); Carbon Dioxide 28 mmol/L (22.0-30.0); Estimated Glomerular Filt Rate 64 ml/min (>60); GFR (African American) 78 ML/MIN (>60); Glucose 94 mg/dl (74-100)
--- NOTE | 2019-10-31 09:55 | XR_ITS ---
PROCEDURE: XR CHEST 2V Patient Age:59Y CLINICAL HISTORY: HTN COMPARISON: CXR CHEST(2 VIEWS-NOT PORTABLE) from 08/07/2015 FINDINGS: PA and lateral chest performed and compared to 2016 exam but no significant new findings The lungs are well expanded and clear with nothing definitely acute. Small stable less than 4 mm calcified granulomas seen at the right mid and left lung field. Not of concern no new nodules or density. Lungs appear hyperexpanded with slight flattening diaphragm which could reflect some developing COPD or emphysematous changes. Correlation required The heart is modest in size. Normal pulmonary vascularity. Preeti and mediastinal structures stable and satisfactory. Minimal calcification inferior aspect of aortic knob again noted. Chest wall and T-spine appear stable intact and unremarkable. No pleural effusion all or pleural findings but no pneumothorax. E. IMPRESSION: Stable chest with nothing acute. Lungs mildly hyperexpanded and clear. Dictated by: Trae Morris MD 10/31/2019 13:29 Electronically signed by Trae Morris MD in [place] 10/31/2019 13:29
[2019-11-01 08:30] LABS: Covid-19 Nasal PCR Sendout UK NOT DETECTED
== END ==
PROVIDERS: Visit Provider Orthopaedic Surgery
DX: Z01.818 Encounter for other preprocedural examination (principal); M17.12 Unilateral primary osteoarthritis, left knee
CPT/HCPCS: 36415; 71046; 80048; 85025; 93005; U0003

== ENCOUNTER 2019-11-02 06:07 | Day surgery (SDC) | payer BC, SELFPAY ==
--- NOTE | 2019-10-28 09:09 | SUR.PREOP ---
10/28/2019 @ 0910--PHONE CALL MADE TO PATIENT. PATIENT UNDERSTANDS THAT LAB WORK AND COVID TESTING NEEDS TO BE COMPLETED @ 0900 ON 10/31/2019. PATIENT UNDERSTANDS IF LAB WORK AND COVID-19 TESTS ARE NOT COMPLETED BY 12PM ON THAT DATE, THE SURGERY SCHEDULED WILL BE CANCELLED AND RESCHEDULED FOR ANOTHER TIME.
[2019-10-29 15:08] VITALS: BMI 24.3
[2019-11-02] VITALS (13 sets, daily range): BP systolic 124–146; BP diastolic 55–80; PULSE 68–95; RESP 13–19; TEMP 36.6–43; O2SAT 90–99
--- NOTE | 2019-11-02 06:57 | HMH.ANESCL ---
[facility] Anesthesia Checklist - Patient Identification Patient Identification: Arm Band, Verbal (Name & ) - Structural Data Admitted From: Home Planned Operative Procedure/s: knee scope Consent for Planned Operative Procedure(s) Verified: Yes Verified Documents: History and Physical - NPO Status Verified Time NPO: 00:00 - Chart Verification Results Verified: CBC, BMP - Additional verifications Patient : No Anesthesia Reactions: No Hx Blood Transfusions: No Blood Transfusion Reaction: No Cephalosporin Allergy: No Previous Colonoscopy: No - Cardiovascular Assessment Heart Sounds: S1 & S2 Pulse Strength: Baseline Pulse Rhythm: Regular Peripheral Edema: Yes - Airway Assessment C-Spine Mobility Assessed: No TMJ Mobility Assessed: No Dentition: Good Dentition - Neurological Assessment Level of Consciousness: Awake, Alert, Appropriate Hx Seizures: No Numbness or tingling in extremities: No - Anesthesia Plan Anesthesia Risk discussed: Yes Anesthesia Plan: Verified ASA Class: II Anesthesia Type: General [facility] History I have reviewed the patient's past medical history: Yes Medical History: Reports:: Hyperlipidemia, Hypertension, Palpitations Denies:: Cancer, Diabetes Mellitus Type 1, Diabetes Mellitus Type 2, Internal Pacemaker, MRSA, Seizures *Have you ever received a pneumonia vaccine?: No *Have you received a flu vaccine this season?: Yes Other Medical History: Reports: Arthritis. Denies: Blood Transfusion Reaction Anesthesia experience/problems:: none Other Surgeries: Yes: Cardiac Catheterization, Colonoscopy, Hernia Repair, Hysterectomy-Total, Hysterectomy-Partial. No: Pacemaker Amputation: No Fractures: No - *Social History Educational Level: Completed High School Smoking Status: Never smoker Alcohol Intake: never Alcohol Intake Frequency:: other Substance Use Type: denies use *Occupational Status:: retired Housing: house Household Members: spouse *Travel in the last 8 weeks: None Family Hx:: No significant family history
--- NOTE | 2019-11-02 10:28 | P.PN_ITS ---
[facility] Anesthesia Record Part I Intake, IV Amount: 1,400 Estimated blood loss (mL): 10 Urine output (mL): 0 Blood Pressure: 143/80 SaO2: 93 Pulse Rate: 94 Respiratory Rate: 16 Temperature: 98 F Patient is:: Drowsy Stable to PACU at:: 10:25
--- NOTE | 2019-11-02 10:33 | XR_ITS ---
PROCEDURE: XR KNEE LT 2V CLINICAL INDICATION: SUBCHONROPLASTY IN OR LEFT KNEE COMPARISON: [id number] KNEE-4 OR 5 VIEWS-LT from 11/14/2016 [id number] KNEE-4 OR 5 VIEWS-RT from 11/14/2016 XR KNEE LT 3V from 05/25/2019 XR KNEE LT 4V from 07/21/2019 FINDINGS: The fluoroscopy time: 54 seconds Fluoro she lies for subchondroplasty procedure. A trocar has been placed along the medial aspect of the distal femur with hyperdensity noted from the bone cement injection. Other findings:None. IMPRESSION: Status post sub chondroplasty of the medial femoral condyle with fluoro guidance Dictated by: Sarvan Graff MD 11/02/2019 11:50 Electronically signed by Sravan Graff MD in [place] 11/02/2019 11:50
--- NOTE | 2019-11-02 11:06 | HMH.OPNOTE ---
Date of procedure: 11/02/19 Pre-op Diagnosis:: 1. Primary osteoarthritis, Left knee 2. Degenerative medial meniscal tear, left knee 3. 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 Examination under anesthesia, left knee. 2. Arthroscopic partial medial meniscectomy, left knee 3. Chondroplasty, left knee 4. Sub-chondroplasty procedure medial femoral condyle, left Surgeon:: Curry Carr MD SHIRT BANDER:: Arik Carter Anesthesia: GETA Estimated blood loss (mL): 2 Clinical Note:: Patient is a 59-year-old female with chronic left knee pain and evidence of degenerative arthritis. She previously had arthroscopic surgery in 2011 for a torn meniscus with some improvement. However, she continued to have pain and disability with the knee for many years. She failed to respond satisfactorily to conservative management including intra-articular injections, NSAIDs and physical therapy. The MRI scan of her LEFT knee is showing a degenerative medial meniscal tear along with chronic bone marrow lesion (reactive bony edema) indicative of stress/microfracture over medial femoral condyle. She also has degenerative changes predominantly involving the medial compartment. Following a detailed discussion regarding management options including both nonsurgical and surgical, patient opted for surgical remediation. The surgical management option which includes LEFT knee arthroscopy, resection of the torn meniscus, debridement/chondroplasty as needed and subchondroplasty procedure for the medial femoral condyle is indicated to relieve the pain and improve function of the knee. Please refer to my office note for full details. Operative findings:: Examination of the LEFT knee under anesthesia, showed a stable knee joint. Knee range of motion included flexion from 5? to 130?; 5? of varus alignment noted. Operative findings showed diffuse grade 2 degenerative changes over the patellofemoral joint and grade 3-4 changes over the medial compartment. There was some synovitis and debris in the knee. There was extensive degenerative tearing involving the body and posterior horn of the medial meniscus with evidence of partial medial meniscectomy. The lateral compartment is relatively well preserved and the lateral meniscus is intact. The anterior cruciate ligament was noted to be intact. Correlating the MRI findings with the arthroscopic findings we have decided to perform sub-chondroplasty procedure for the medial femoral condyle. Small amount of knee effusion noted. Operative note:: On the day of the procedure the patient was met in the preoperative area and positively identified. A physical examination was performed and documented. The limb was marked. I again discussed the diagnosis, natural history and management options including both nonsurgical and surgical. I discussed the proposed surgical procedure, risks and benefits and alternatives in detail. The complications discussed include but are not limited to infection, injury to nerves and blood vessels, injury to the ligaments and tendons, knee stiffness, arthrofibrosis, incomplete relief, incomplete functional recovery, DVT, PE, CRPS, complications related to anesthesia including heart attack, stroke and even . I have also discussed about the likely need for further surgery in future. I told her that there were no guarantees with surgery; she could be no better or even worse. We also discussed the postoperative recovery and rehabilitation protocol. I believe the patient to be well informed with regard to the proposed surgery. I told her that it could take few months for full recovery of the knee after surgery. She expressed a full understanding and wished to proceed with the planned surgery. A physical examination was performed and documented and the site and side of surgery were marked and initialed by me. Patient understood the risks, wished to proceed
--- NOTE | 2019-11-02 13:10 | HMH.ANESII ---
[facility] Anesthesia Record Part II Discharge Time: 10:59 Destination: Surgical Day Care (OP Surgery) PACU nurse assessment reviewed?: Yes Patient Condition:: Good Anesthesia Complications:: None Swallowing reflex intact?: Yes Cyanosis?: No Blood Pressure: 133/75 Pulse Rate: 89 Temperature: 97.8 F Mental Status: Alert & Oriented Pain level:: 0 Nausea and/or vomitting:: None Intake, IV Amount: 0
== END 2019-11-02 11:53 | disposition home or self-care (01) ==
PROVIDERS: PCP Internal Medicine; Visit Provider Orthopaedic Surgery
PROC: (CPT 29870; principal; 2019-11-02 07:30)
DX: M17.12 Unilateral primary osteoarthritis, left knee (principal); M23.262 Derangement of other lateral meniscus due to old tear or injury, left knee; M23.204 Derangement of unspecified medial meniscus due to old tear or injury, left knee; Z79.899 Other long term (current) drug therapy; Z79.82 Long term (current) use of aspirin; I10 Essential (primary) hypertension; E78.5 Hyperlipidemia, unspecified
CPT/HCPCS: 29881; 29879; 71046; 73560; 76000; 93005; 96374; C1713

== ENCOUNTER → 2019-12-15 09:50 | Outpatient (CLI) | payer BC, SELFPAY ==
--- NOTE | 2019-12-15 09:57 | XR_ITS ---
PROCEDURE: XR KNEE LT 4V CLINICAL INDICATION: sp left knee surgery with subchondroplasty No new COMPARISON: [id number] KNEE-4 OR 5 VIEWS-RT from 11/14/2016 XR KNEE LT 3V from 05/25/2019 XR KNEE LT 4V from 07/21/2019 XR KNEE LT 2V from 11/02/2019 FINDINGS: There are moderate osteoarthritic changes of the medial compartment with mild osteoarthritis of the lateral compartment and patellofemoral joint. There has been prior sub chondroplasty of the medial femoral condyle IMPRESSION: Osteoarthritis. Prior sub chondroplasty medial femoral condyle Dictated by: Sravan Graff MD 12/15/2019 15:21 Electronically signed by Sravan Graff MD in [place] 12/15/2019 15:21
== END ==
PROVIDERS: PCP Internal Medicine; Visit Provider Orthopaedic Surgery
DX: Z09 Encounter for follow-up examination after completed treatment for conditions other than malignant neoplasm (principal); M25.562 Pain in left knee
CPT/HCPCS: 73564

== ENCOUNTER 2020-02-18 15:00 | Outpatient (RCR) | payer BC, SELFPAY ==
--- NOTE | 2019-12-18 15:34 | HMH.PTOPEV ---
PT Outpatient Evaluation Rehab PT Outpatient Evaluation Start: 12/18/19 14:08 Freq: Status: Active Protocol: Document 12/18/19 14:08 SOLANGE (Rec: 12/18/19 15:34 SOLANGE [id number]) Electronically Signed By Rogerio Montenegro, PT 12/18/19 14:08 Outpatient Therapy Subjective History Subjective History Pt presents s/p L knee scope, medial meniscectomy, chondro- and subchondroplasty on . Pt reports increased medial L knee pain and swelling, as well as decreased ROM since sx. Pt reports ' injection' on day of sx., 'it was supposed to start helping in 3 months, so I'm hoping it does'. Chief Complaint Pain,Stiff,Swelling,Weakness Symptom Type Ache,Sharp,Dull Symptoms Relieved By Rest/Positioning,Ice Symptoms Aggravated By Standing,Physical Activity, Walking Prior Functional Limitations Standing,Walking Current Functional Limitations Housework,Standing,Squatting, Walking,Stairs Symptom Description Constant but Variable Level of pain today (0-10) 6 Pain scale - at its best (0-10) 4 Pain scale - at its worst (0-10) 7 Hip/Knee Eval Gait Observation General Gait Pattern Observation Antalgic Gait,Wide Based Gait Palpation Tenderness left Knee Palpation Finding Tenderness Knee Palpation Overall Comment 3/4 medial aspect MMT Hip Flexion Strength Grade 4- Good- Hip Abduction Strength Grade 4- Good- Hip Adduction Strength Grade 3+ Fair+ Hip Extension Strength Grade 4- Good- Hip External Rotation Strength Grade 4 Good Hip Internal Rotation Strength Grade 4- Good- Knee Extension Strength Grade 4 Good Knee Flexion Strength Grade 4- Good- ROM Knee Flexion Active Range of Motion ( 8-85 degrees) Knee ROM Limitations Soft Tissue Tightness,Pain Effusion joint effusion knee exam standard left Mid - Patellar Circumerential Measure ( 40.5 cm) Outpatient Therapy Assessment Impairments Problems/Impairmments Palpation Tenderness,Impaired Range of Motion,Impaired Strength,Impaired Gait Pattern ,Impaired Walking,Impaired Standing,Impaired Stair Climbing,Impaired Squatting, Subjective C/O Pain,Impaired Self Care/Self Management Prognosis Rehab Potential
--- NOTE | 2020-02-02 11:43 | HMH.RHREAS ---
Rehab Reassessment Rehab OP Re-assessment Start: 02/02/20 11:38 Freq: Status: Active Protocol: Document 02/02/20 11:38 CELSOTRISTAN (Rec: 02/02/20 11:43 STUARTVIPINTRISTAN [id number]) Electronically Signed By Rogerio Montenegro, PT 02/02/20 11:38 Rehab Re-assessment Subjective Subjective Pt reports 4-5/10 L knee pain at rest, and 7-8/10 L knee pain (medial) w/activity (eron. TKE). Pt reports improved ability to bend knee, and ambulate up and down stairs since I Eval. Objective Objective Notes AROM: 10-118 L KNEE FLX, PROM 8-120 L KNEE FLX MMT: L QUAD 4+/5, L HS 4-4+/5, L HIP IR 4+/5, L HIP ER 4/5 W /PAIN, L HIP ABD AND EXT 4-4+/ 5, L HIP ADD 4/5 W/PAIN TTP: L KNEE JT LINE MEDIAL 08/18 , L PES ANSERINE INSERTION 2- Assessment Progress Assessment Slower Than Expected Assessment Notes PT W/IMPROVED ROM, AND STRENGTH, HOWEVER, STILL POSSESSES SIGNIFICANT PAIN, TTP, AND GAIT LIMITATIONS Patient goals met STG'S 09/21 LTG'S 08/24 Goals Not Met STG'S 08/21, LTG'S 12/24 Plan Plan PT TO CONT. W/SKILLED P.T. TO MAKE FURTHER IMPROVEMENTS IN L KNEE AROM, STRENGTH, AND TTP TO ALLOW FOR OPTIMAL FUNCTION Frequency of Therapy 1-2X/WK Duration of therapy 3-4 WKS Time and Billing Re-Eval Time 15 Re-Eval Billing Units 1 PHYSICIAN CERTIFICATION: I certify the specified therapy services for Cintia Ritchie are required, authorized, and reviewed every 30 days.
== END 2020-02-18 16:02 | disposition home or self-care (01) ==
LOC: PT 15:00
PROVIDERS: PCP Internal Medicine; Visit Provider Orthopaedic Surgery
DX: M25.562 Pain in left knee; Z96.652 Presence of left artificial knee joint
CPT/HCPCS: 97010; 97014; 97016; 97035; 97110; 97140; 97163; 97164; G0283

== ENCOUNTER → 2020-02-29 15:03 | Outpatient (CLI) | payer BC, SELFPAY ==
--- NOTE | 2020-02-29 15:07 | XR_ITS ---
PROCEDURE: XR CHEST 2V CLINICAL HISTORY: ESSENTIAL PRIMARY HYPERTENSION COMPARISON: CR CXR CHEST(2 VIEWS-NOT PORTABLE) from 08/07/2015 CR XR CHEST 2V from 10/31/2019 FINDINGS: The cardiomediastinal silhouette and pulmonary vascularity are within normal limits. COPD suspected. There is a 10 mm opacity in the left perihilar region possibly due to summation artifact from overlying vessels. There are other calcified granulomas noted. No acute bony abnormalities. IMPRESSION: No acute finding. Left perihilar opacity possibly due to summation artifact versus nodule and may be confirmed with follow-up Dictated by: Sravan Graff MD 02/29/2020 17:26 Sravan Graff MD in [place] 02/29/2020 17:26
--- NOTE | 2020-02-29 15:35 | ECG_ITS ---
APPROVED REPORT Exam: Resting ECG HR:62 bpm ECG Measurements Heart Rate 62 AXES OH 182 P 66 QRSd 82 QRS 43 QT 374 T 61 QTc 379 <Conclusion> Normal sinus rhythm Normal ECG Electronically signed by : Rashawn Ervin, 03/01/2020 13:57:16
== END ==
PROVIDERS: PCP Internal Medicine; Visit Provider Internal Medicine
DX: Z01.810 Encounter for preprocedural cardiovascular examination (principal); I10 Essential (primary) hypertension
CPT/HCPCS: 71046; 93005

== ENCOUNTER → 2020-03-21 10:40 | Outpatient (CLI) | payer BC, SELFPAY | PROVIDERS: PCP Internal Medicine; Visit Provider Internal Medicine | DX: Z03.818 Encounter for observation for suspected exposure to other biological agents ruled out (principal) | CPT/HCPCS: U0003 ==

== ENCOUNTER → 2020-06-15 11:03 | Outpatient (CLI) | payer BC, SELFPAY ==
--- NOTE | 2020-06-15 11:06 | XR_ITS ---
PROCEDURE: XR CHEST 2V CLINICAL HISTORY: ABN CXR 02/29/20-FOLLOW UP COMPARISON: CR CXR CHEST(2 VIEWS-NOT PORTABLE) from 08/07/2015 CR XR CHEST 2V from 10/31/2019 CR XR CHEST 2V from 02/29/2020 FINDINGS: Mild emphysematous changes are seen with lung vick. There is no infiltrate. Cardiac size is normal and vascularity is normal no pleural fluid. Old healed fracture left 7th rib posteriorly. IMPRESSION: Mild COPD, no acute chest pathology noted Dictated by: Dr. Boby Plascencia MD 06/15/2020 11:41 Dr. Boby Plascencia MD in [place] 06/15/2020 11:41
== END ==
PROVIDERS: PCP Internal Medicine; Visit Provider Internal Medicine
DX: R93.89 Abnormal findings on diagnostic imaging of other specified body structures (principal)
CPT/HCPCS: 71046

== ENCOUNTER 2020-07-26 10:00 | Outpatient (RCR) | payer BC, SELFPAY | END 2020-07-26 10:05 | disposition home or self-care (01) | LOC: PT 10:00 | PROVIDERS: PCP Internal Medicine; Visit Provider Orthopaedic Surgery | DX: M25.562 Pain in left knee (principal) | CPT/HCPCS: 97010; 97014; 97016; 97110; 97140; 97163; 97164; G0283 ==

== ENCOUNTER → 2020-08-15 08:54 | Outpatient (POV) | payer BC, SELFPAY | PROVIDERS: Visit Provider Nurse Practitioner Family | DX: Z00.00 Encounter for general adult medical examination without abnormal findings (principal) ==

== ENCOUNTER → 2020-08-15 10:35 | Outpatient (CLI) | payer BC, SELFPAY ==
--- NOTE | 2020-08-15 10:36 | MM_ITS ---
PROCEDURE: MM DIG SCREENING MAMM BI W/CAD Digital Breast Tomosynthesis Included CLINICAL INDICATION: Routine Screening Mammogram There is a history of breast cancer in the patient's aunt. There has been a previous cyst aspiration left breast for benign findings. The patient has been on estrogen in the past year but recently stopped taking estrogen COMPARISON: MG DMSB DIG MAMM-SCREEN ROSENDO W/CAD from 04/10/2017 MG SCBI MM Dig screening mamm BI w/CAD from 04/15/2018 MG MM DIG SCREENING MAMM BI W/CAD from 04/21/2019 TECHNIQUE: Standard CC and MLO images and 3D Tomosynthesis was obtained. R2 CAD reviewed. FINDINGS: Moderately prominent diffuse fibroglandular densities are seen in the central portions of both breasts and the findings are bilateral and symmetrical. There is faint arterial calcification noted in each breast. No new or suspicious lesion in either breast and no suspicious microcalcifications. IMPRESSION: Stable moderate diffuse breast density with no suspicious lesions seen BI-RAD Category: 2 Benign Finding(s) FOLLOW-UP: 1YR 1 Year Follow-up (A letter has been sent to the patient regarding results of the study.) Dictated by: Dr. Boby Plascencia MD 08/16/2020 14:08 Dr. Boby Plascencia MD in [place] 08/16/2020 14:08
== END ==
PROVIDERS: PCP Internal Medicine; Visit Provider Obstetrics & Gynecology
DX: Z12.31 Encounter for screening mammogram for malignant neoplasm of breast (principal)
CPT/HCPCS: 77063; 77067

== ENCOUNTER 2020-10-06 09:22 | Emergency (ER) | payer BC, SELFPAY ==
[2020-10-06 09:22] VITALS: BP 143/74; PULSE 81; RESP 18; TEMP 36.6; O2SAT 99; BMI 24.5
--- NOTE | 2020-10-06 09:55 | HMH.EDUTC ---
[facility] [place] Clinical Impression: UTI (urinary tract infection) Qualifiers: Urinary tract infection type: site unspecified Hematuria presence: without hematuria Qualified Code(s): N39.0 - Urinary tract infection, site not specified Disposition: Home, Self-Care Condition on Discharge: Good Instructions: Urinary Tract Infection, DI for Urinary Tract Infection (UTI), Nitrofurantoin Additional Instructions: *Increase fluids. Water not Soda or Tea *Start antibiotic immediately and be sure to take as ordered for the FULL length of time although you should start to see improvement over the next 48 hours *Pyridium as needed Remember this medication will turn your urine [place]. This is normal but it will stain what ever it gets on *You should not use Pyridium for more than 48 hours. If so , follow up with your primary physician to review urine culture and ensure that antibiotic is adequate for infection *Be SURE to follow up anytime for new or worsening symptoms with your family doctor. AND in 48 hours for urine culture results with your family doctor, if you do not have a doctor then you may call back to the [facility] for urine culture results and further treatment. We do recommend that you choose and establish care with a Primary Care Physician. AND follow up with them in 10-14 days to repeat UA to ensure infection is resolved and blood no longer present *Be sure to let your PCP know that we sent urine cultures from the [facility] so they can follow up to ensure that you area the on the correct antibiotic Call your doctor office and make appointment for 48 hours (2 days from today) to follow up and get the results of your urine culture and further treatment Return if needed Straight to ER if any life threatening symptoms Stop taking AZO and start pyridium these are similar medications Prescriptions: Nitrofurantoin Monohyd/M-Cryst [Macrobid 100 mg Capsule] 100 mg PO BID 5 Days #10 cap Transmission Status: Pending to [facility] Phenazopyridine HCl [Pyridium 200mg Tablet] 200 pow PO TID #6 tab Transmission Status: Pending to [facility] Referrals: Rashawn Ervin [Primary Care Provider] - As needed Time of Disposition: 10:03 Medical Decision Making - Rudi Inquiry Pt receiving controlled substance: No Rudi was queried for this patient: No Vital Signs: 10/06/20 09:22 Temperature 97.9 F Temperature Source Oral Pulse Rate [Right] 81 Respiratory Rate 18 Blood Pressure [Right Arm] 143/74 H Blood Pressure Mean [Right Arm] 97 02 Sat by Pulse Oximetry 99 - Lab Data Lab results reviewed: Yes: I reviewed the patient's lab results. Orders (Tests/Meds): ORDERS Category Date Time Status Urine Culture Stat Micro 10/06/20 09:50 Ordered [facility] [place] [facility] [place] - General Stated complaint: burning when urinates,blood in urine Time Seen by Provider: 10/06/20 09:55 Mode of Arrival: Family Vehicle Source of Information: Patient Limitations: No Limitations Description of Symptoms (Recalled from Triage Doc. by RN): PATIENT/ C/O FREQUENT URINATION, BURNING AND SCANT AMOUNT OF BLOOD WHEN SHE URINATES SINCE LAST NIGHT. HEENT Symptoms (Recalled from RN notes): No Resp Symptoms (Recalled from RN notes): No Skin Symptoms (Recalled from RN notes): No MS Symptoms (Recalled from RN notes): No Functional Status (Recalled from RN notes): NA - History of Present Illness Provider Complaint: Patient states that yesterday she was having some burning with urination and feeling of urgency and frequency States that when she wiped last night she noticed a little something red on the tissue and thought it may have been blood States that she took an azo and it got better but she is still having the feeling of urgency and frequency - Related Data Home Medications Medication Instructions Recorded Confirmed ascorbic acid (vitamin C) 1,000 mg 1 g PO DAILY tab 04/03/18 12/15/19 tablet aspirin 81 mg tablet,delayed 81 mg PO DAILY
[2020-10-06 10:04] VITALS: BP 134/73; PULSE 81; RESP 20; TEMP 36.5; O2SAT 97
[2020-10-06 10:05] LABS: Apearance,Urine Clear (Clear); Bilirubin,Urine Negative (Negative); Blood, Urine Negative (Negative); Color,Urine Yellow (Yellow); Glucose,Urine (UA) Negative (Negative); Ketones,Urine Negative (Negative); PH,Urine 6.5 (5.0-8.5); Protein,Urine Negative (Negative); Urobilinogen,Urine 0.2 EU/dl (0.2)
[2020-10-06 10:06] LABS: UTC Leukocyte Esterase,Urine Negative (Negative); UTC Nitrate,Urine Positive (Negative)
== END 2020-10-06 10:04 | disposition home or self-care (01) ==
PROVIDERS: Emergency Provider Nurse Practitioner; PCP Internal Medicine
DX: N30.01 Acute cystitis with hematuria (principal); I10 Essential (primary) hypertension; E78.5 Hyperlipidemia, unspecified; R00.2 Palpitations; Z79.899 Other long term (current) drug therapy
CPT/HCPCS: 81003; 87086; 87088; 87186; 99202; G0463

== ENCOUNTER → 2021-04-05 10:09 | Outpatient (CLI) | payer BC, SELFPAY | PROVIDERS: PCP Internal Medicine; Visit Provider Internal Medicine | DX: Z20.822 Contact with and (suspected) exposure to COVID-19 (principal) | CPT/HCPCS: C9803; U0003; U0005 ==

== ENCOUNTER 2021-05-13 09:49 | Emergency (ER) | payer BC, SELFPAY ==
[2021-05-13 09:55] VITALS: BP 148/69; PULSE 77; RESP 22; TEMP 37.1; O2SAT 99; BMI 24.4
[2021-05-13 10:21] LABS: Apearance,Urine Clear (Clear); Bilirubin,Urine Negative (Negative); Blood, Urine Trace (Negative); Color,Urine Yellow (Yellow); Glucose,Urine (UA) Negative (Negative); Ketones,Urine Negative (Negative); Protein,Urine Negative (Negative); UTC Leukocyte Esterase,Urine Negative (Negative); UTC Nitrate,Urine Positive (Negative); Urobilinogen,Urine 0.2 EU/dl (0.2)
--- NOTE | 2021-05-13 10:21 | HMH.EDUTC ---
[facility] [place] Impression: UTI (urinary tract infection) Qualifiers: Urinary tract infection type: site unspecified Hematuria presence: with hematuria Qualified Code(s): N39.0 - Urinary tract infection, site not specified Disposition: Home, Self-Care Condition on Discharge: Good Instructions: Urinary Tract Infection, DI for Urinary Tract Infection (UTI), Nitrofurantoin Additional Instructions: *Increase fluids. Water not Soda or Tea *Start antibiotic immediately and be sure to take as ordered for the FULL length of time although you should start to see improvement over the next 48 hours *Pyridium as needed Remember this medication will turn your urine [place]. This is normal but it will stain what ever it gets on *You should not use Pyridium for more than 48 hours. If so , follow up with your primary physician to review urine culture and ensure that antibiotic is adequate for infection *Be SURE to follow up anytime for new or worsening symptoms with your family doctor. AND in 48 hours for urine culture results with your family doctor, if you do not have a doctor then you may call back to the [facility] for urine culture results and further treatment. We do recommend that you choose and establish care with a Primary Care Physician. AND follow up with them in 10-14 days to repeat UA to ensure infection is resolved and blood no longer present *Be sure to let your PCP know that we sent urine cultures from the [facility] so they can follow up to ensure that you area the on the correct antibiotic Call your doctor office and make appointment for 48 hours (2 days from today) to follow up and get the results of your urine culture and further treatment Prescriptions: Nitrofurantoin Monohyd/M-Cryst [Macrobid 100 mg Capsule] 100 mg PO BID 7 Days #14 cap Transmission Status: Received by [facility] Phenazopyridine HCl [Pyridium 200mg Tablet] 200 pow PO TID #6 tab Transmission Status: Received by [facility] Referrals: Rashawn Ervin [Primary Care Provider] - As needed Time of Disposition: 10:36 Medical Decision Making - Rudi Inquiry Pt receiving controlled substance: No Rudi was queried for this patient: No Vital Signs: 05/13/21 09:55 05/13/21 10:39 Temperature 98.7 F 98.7 F Temperature Source Temporal Artery Scan Pulse Rate 77 Pulse Rate [Right Brachial] 77 Respiratory Rate 22 22 Blood Pressure 148/69 H Blood Pressure [Right Arm] 148/69 H Blood Pressure Mean [Right Arm] 95 Blood Pressure Source [Right Arm] Automatic Cuff Blood Pressure Position [Right Arm] Sitting 02 Sat by Pulse Oximetry 99 Oxygen Delivery Method Room Air - Lab Data Lab results reviewed: Yes: I reviewed the patient's lab results. Lab Results 05/13/21 10:02: Urine Color Yellow, Urine Appearance Clear, Urine pH 7.0, Ur Specific [place] 1.010, Urine Protein Negative, Urine Glucose (UA) Negative, Urine Ketones Negative, Urine Blood Trace, Urine Nitrate Positive A, Urine Bilirubin Negative, Urine Urobilinogen 0.2, Ur Leukocyte Esterase Negative Orders (Tests/Meds): ORDERS Category Date Time Status Urine Culture Stat Micro 05/13/21 09:54 [place] [facility] [place] General Stated complaint: possible uti Time Seen by Provider: 05/13/21 10:21 Mode of Arrival: Ambulatory Source of Information: Patient Limitations: No Limitations Description of Symptoms (Recalled from Triage Doc. by RN): PATIENT C/O PAIN WITH URINATION, LOWER BACK PAIN, RED COLOR TO URINE AND NAUSEA X 2-3 DAYS HEENT Symptoms (Recalled from RN notes): No Resp Symptoms (Recalled from RN notes): No Skin Symptoms (Recalled from RN notes): No MS Symptoms (Recalled from RN notes): No Functional Status (Recalled from RN notes): WNL - History of Present Illness Provider Complaint: Patient states that she has been having pain in her lower back area and feeling like she had to go more frequently than usual States that she took some AZO and it helped a little with
[2021-05-13 10:39] VITALS: BP 148/69; PULSE 77; RESP 22; TEMP 37.1; O2SAT 99
== END 2021-05-13 10:44 | disposition home or self-care (01) ==
PROVIDERS: Emergency Provider Nurse Practitioner; PCP Internal Medicine
DX: N30.00 Acute cystitis without hematuria (principal); I10 Essential (primary) hypertension; E78.5 Hyperlipidemia, unspecified
CPT/HCPCS: 81003; 87086; 99202; G0463

== ENCOUNTER → 2021-06-26 09:45 | Outpatient (CLI) | payer BC, SELFPAY ==
[2021-06-26 12:55] LABS: Basophils # 0.1 K/mm3 (0-0.2); Basophils % 1.1 % (0.1-2.0); Eosinophils # 0.2 K/mm3 (0.0-0.4); Eosinophils % 4.2 % (0.1-12.0); Hematocrit 42.8 % (37.0-47.0); Hemoglobin 13.8 g/dL (12.2-16.2); Lymphocytes # 1.4 K/mm3 (0.7-4.5); Lymphocytes % 28.6 % (10-50); Mean Corpuscular HGB Conc 32.2 g/dL (31.8-35.4); Mean Corpuscular Hemoglobin 30.1 pg (27.0-31.2); Mean Corpuscular Volume 93.6 fl (81-99); Monocytes # 0.3 K/mm3 (0.1-1.0); Neutrophils # 2.8 K/mm3 (1.8-7.8); Neutrophils % 60.1 % (37.0-80.0); Platelet Count 356 K/mm3 (142-424); Red Blood Count 4.57 M/mm3 (4.20-5.40); Red Cell Distribution Width 13.9 % (11.5-17.5); White Blood Count 4.7 K/mm3 (4.8-10.8)
[2021-06-26 13:40] LABS: Chloride 103 mmol/L (98-107)
[2021-06-26 13:41] LABS: Potassium 4.3 mmoL/L (3.5-5.1); Sodium 141 mmol/L (136-145)
[2021-06-26 13:43] LABS: Alanine Aminotransferase 15 U/L (12-78); Alkaline Phosphatase 43 U/L (38-126); Anion Gap 10.3 mEq/L (5-15); Aspartate Amino Transferase 27 U/L (14-36); Bilirubin,Total 0.6 mg/dl (0.2-1.3); Blood Urea Nitrogen 12 mg/dl (7-17); Carbon Dioxide 32 mmol/L (22.0-30.0); Estimated Glomerular Filt Rate 56 ml/min (>60); GFR (African American) 68 ML/MIN (>60)
[2021-06-26 13:44] LABS: Albumin Level 4.3 g/dl (3.5-5.0); Albumin/Globulin Ratio 1.8 (1.1-1.8); Calcium 9.6 mg/dl (8.4-10.2); Cholesterol 164 mg/dl (140-200); Globulin 2.4 g/dL (1.3-3.2); Glucose 84 mg/dl (74-100); Magnesium 1.8 mg/dl (1.6-2.3); Total Protein,Serum 6.7 g/dl (6.3-8.2); Triglycerides 68 mg/dl (30-150); VLDL Cholesterol 14 mg/dL (0-40)
[2021-06-26 13:55] LABS: Direct LDL Cholesterol 81.06 mg/dL (100-129)
[2021-06-26 19:47] LABS: Chol/HDL Ratio 3.1 (1-3.5); HDL Cholesterol 53 mg/dl (40-60)
== END ==
PROVIDERS: PCP Internal Medicine; Visit Provider Internal Medicine
DX: Z20.822 Contact with and (suspected) exposure to COVID-19 (principal); B34.9 Viral infection, unspecified; I10 Essential (primary) hypertension; E78.5 Hyperlipidemia, unspecified; M15.0 Primary generalized (osteo)arthritis
CPT/HCPCS: 80053; 80061; 83735; 85025; C9803; U0003; U0005

== ENCOUNTER → 2021-12-25 13:22 | Outpatient (CLI) | payer BC, SELFPAY ==
[2021-12-25 14:33] LABS: Alanine Aminotransferase 16 U/L (12-78); Albumin/Globulin Ratio 1.7 (1.1-1.8); Alkaline Phosphatase 56 U/L (38-126); Anion Gap 10.7 mEq/L (5-15); Aspartate Amino Transferase 25 U/L (14-36); Bilirubin,Total 0.5 mg/dl (0.2-1.3); Blood Urea Nitrogen 17 mg/dl (7-17); Calcium 9.5 mg/dl (8.4-10.2); Carbon Dioxide 29 mmol/L (22.0-30.0); Chloride 104 mmol/L (98-107); Chol/HDL Ratio 2.9 (1-3.5); Cholesterol 148 mg/dl (140-200); Estimated Glomerular Filt Rate 56 ml/min (>60); GFR (African American) 68 ML/MIN (>60); Globulin 2.3 g/dL (1.3-3.2); Glucose 83 mg/dl (74-100); HDL Cholesterol 51 mg/dl (40-60); Potassium 4.7 mmoL/L (3.5-5.1); Sodium 139 mmol/L (136-145); Total Protein,Serum 6.3 g/dl (6.3-8.2); Triglycerides 88 mg/dl (30-150); VLDL Cholesterol 18 mg/dL (0-40)
[2021-12-25 14:44] LABS: Direct LDL Cholesterol 69.98 mg/dL (100-129)
== END ==
PROVIDERS: PCP Internal Medicine; Visit Provider Internal Medicine
DX: I10 Essential (primary) hypertension (principal); E78.5 Hyperlipidemia, unspecified; I47.0 Re-entry ventricular arrhythmia; N18.1 Chronic kidney disease, stage 1
CPT/HCPCS: 80053; 80061

== ENCOUNTER 2022-04-08 08:50 | Emergency (ER) | payer BC, SELFPAY ==
--- NOTE | 2022-04-08 08:52 | EXP.UTC ---
Discharge Plan Disposition Patient Disposition: Home, Self-Care Condition: Good Prescriptions Prescriptions: New phenazopyridine [Pyridium] 200 mg tablet 200 mg PO Q8H 2 Days Qty: 6 0RF ciprofloxacin HCl [Cipro] 500 mg tablet 500 mg PO BID 7 Days Qty: 14 0RF No Action cetirizine [Zyrtec] 10 mg tablet 10 mg PO DAILY Complete Multivitamin tablet 1 tab PO DAILY omega-3 fatty acids [Fish Oil Concentrate] 1,000 mg capsule 1,000 mg PO DAILY ascorbic acid (vitamin C) 1,000 mg tablet 1 g PO DAILY Vitamin B-12 5,000 mcg tablet, sublingual 5,000 mcg SUBLINGUAL DAILY lisinopril 10 mg tablet 10 mg PO DAILY aspirin [Adult Low Dose Aspirin] 81 mg tablet,delayed release (DR/EC) 81 mg PO DAILY verapamil 360 mg capsule,ext rel. pellets 24 hr 360 mg PO DAILY buspirone 10 mg tablet 10 mg PO BID omeprazole 20 mg tablet,delayed release (DR/EC) 20 mg PO DAILY atorvastatin 40 mg tablet 40 mg PO DAILY calcium carbonate 600 mg calcium (1,500 mg) tablet 600 mg PO DAILY Move Free PolicyStat 750 mg-100 mg- 1.65 mg-108 mg tablet See Rx Instructions PO DAILY Label Comments: 1 PO DAILY; Rx Instructions: 1 PO DAILY; estradiol 1 mg tablet 1 mg PO DAILY 30 Days Qty: 30 12RF acyclovir 400 mg tablet 400 mg PO DAILY phenazopyridine 200 MG tablet 200 pow PO TID Qty: 6 0RF nitrofurantoin monohyd/m-cryst 100 MG capsule 100 mg PO BID 7 Days Qty: 14 0RF phenazopyridine 200 MG tablet 200 pow PO TID Qty: 6 0RF nitrofurantoin monohyd/m-cryst 100 MG capsule 100 mg PO BID 5 Days Qty: 10 0RF Referrals Follow up/Referrals: Rashawn Ervin MD [Primary Care Provider] - See instructions Activity Restrictions/Add. Instructions Additional Instructions/Restrictions: Drink plenty of fluids. Take tylenol or ibuprofen for pain or fever. Take the medications as directed. Follow up with your regular doctor. GO TO THE ER FOR ANY WORSENING SYMPTOMS The pyridium will make your urine turn orange, this is an expected side effect. It will stain your clothes if it comes into contact with them. We will culture the urine. That will tell what bacteria is causing your infection and which antibiotics will treat it best. Sometimes the first antibiotic we prescribe turns out to not work against different bacteria. So, make sure you follow up within 3 days if you are not getting better. Clinical Impressions Clinical Impression: UTI (urinary tract infection) Instructions Patient Instructions: Urine Culture, DI for Urinary Tract Infection (UTI), Phenazopyridine Discharge ED Provider: Gregory Arora [facility] [place] General Stated complaint: possible UTI Time Seen by Provider: 04/08/22 09:04 History of Present Illness Provider Complaint: She states that for the past 2 days she has had low back pain, dysuria and urinary frequency. Related Data Home Medications Medication Instructions Recorded Confirmed ascorbic acid (vitamin C) 1,000 mg 1 g PO DAILY Supplement 04/03/18 12/15/19 tablet aspirin 81 mg tablet,delayed 81 mg PO DAILY Heartburn 04/03/18 12/15/19 release (Adult Low Dose Aspirin) atorvastatin 40 mg tablet 40 mg PO DAILY Cholesterol 04/03/18 12/15/19 buspirone 10 mg tablet 10 mg PO BID mood 04/03/18 12/15/19 calcium carbonate 600 mg calcium 600 mg PO DAILY Supplement 04/03/18 12/15/19 (1,500 mg) tablet cetirizine 10 mg tablet (Zyrtec) 10 mg PO DAILY allergies 04/03/18 12/15/19 cyanocobalamin (vitamin B-12) 5,000 mcg sublingual DAILY 04/03/18 12/15/19 5,000 mcg sublingual tablet Supplement (Vitamin B-12) glucosam 750 mg-chondroi 100 See Rx Instructions PO DAILY 04/03/18 12/15/19 mg-hyalur 1.65 mg-CF borate 108 mg Supplement tablet (Move Free PolicyStat) lisinopril 10 mg tablet 10 mg PO DAILY blood pressure 04/03/18 12/15/19 multivitamin,[id number] 1 tab PO DAILY Supplement 1
[2022-04-08 09:18] VITALS: BP 138/80; PULSE 76; RESP 17; TEMP 37.1; O2SAT 96; BMI 25.0
[2022-04-08 09:58] VITALS: BP 138/80; PULSE 76; RESP 17; TEMP 37.1
[2022-04-08 10:37] LABS: Apearance,Urine Cloudy (Clear); Color,Urine Dark Yellow (Yellow); Glucose,Urine (UA) 1+ (Negative); Ketones,Urine Negative (Negative); PH,Urine 6.5 (5.0-8.5); Protein,Urine Negative (Negative); Specific Gravity, Urine 1.015 (1.005-1.030)
[2022-04-08 10:38] LABS: Bilirubin,Urine Negative (Negative); Blood, Urine 2+ (Negative); UTC Leukocyte Esterase,Urine 1+ (Negative); UTC Nitrate,Urine Positive (Negative); Urobilinogen,Urine 1 EU/dl (0.2)
== END 2022-04-08 10:02 | disposition home or self-care (01) ==
PROVIDERS: Emergency Provider Nurse Practitioner Family; PCP Internal Medicine
DX: N39.0 Urinary tract infection, site not specified (principal)
CPT/HCPCS: 81003; 87086; 99212; G0463

== ENCOUNTER → 2022-06-29 12:43 | Outpatient (CLI) | payer BC, SELFPAY ==
[2022-06-29 14:28] LABS: Basophils # 0.1 K/mm3 (0-0.2); Eosinophils # 0.3 K/mm3 (0.0-0.4); Eosinophils % 4.6 % (0.1-12.0); Hematocrit 39.6 % (37.0-47.0); Hemoglobin 13.2 g/dL (12.2-16.2); Lymphocytes # 1.4 K/mm3 (0.7-4.5); Lymphocytes % 24.3 % (10-50); Mean Corpuscular HGB Conc 33.4 g/dL (31.8-35.4); Mean Corpuscular Hemoglobin 28.7 pg (27.0-31.2); Mean Corpuscular Volume 86.1 fl (81-99); Mean Platelet Volume 8.7 fl (7.4-10.4); Monocytes # 0.3 K/mm3 (0.1-1.0); Monocytes % 5.5 % (1.7-9.3); Neutrophils # 3.8 K/mm3 (1.8-7.8); Neutrophils % 64.6 % (37.0-80.0); Platelet Count 295 K/mm3 (142-424); Red Cell Distribution Width 13.6 % (11.5-17.5); White Blood Count 5.8 K/mm3 (4.8-10.8)
[2022-06-29 15:08] LABS: Alanine Aminotransferase 21 U/L (12-78); Albumin/Globulin Ratio 1.7 (1.1-1.8); Alkaline Phosphatase 61 U/L (38-126); Aspartate Amino Transferase 25 U/L (14-36); Bilirubin,Total 0.5 mg/dl (0.2-1.3); Blood Urea Nitrogen 15 mg/dl (7-17); Calcium 8.6 mg/dl (8.4-10.2); Carbon Dioxide 26 mmol/L (22.0-30.0); Chloride 103 mmol/L (98-107); Chol/HDL Ratio 3.8 (1-3.5); Cholesterol 119 mg/dl (140-200); Creatine Kinase 28 U/L (30-135); Estimated Glomerular Filt Rate 73 ml/min (>60); GFR (African American) 88 ML/MIN (>60); Globulin 2.4 g/dL (1.3-3.2); Glucose 92 mg/dl (74-100); HDL Cholesterol 31 mg/dl (40-60); Sodium 138 mmol/L (136-145); Total Protein,Serum 6.4 g/dl (6.3-8.2); Triglycerides 105 mg/dl (30-150); VLDL Cholesterol 21 mg/dL (0-40)
[2022-06-29 15:19] LABS: Direct LDL Cholesterol 64.21 mg/dL (100-129)
[2022-06-29 15:39] LABS: Thyroid Stimulating Hormone 1.59 uIU/mL (0.465-4.68)
[2022-06-29 16:00] LABS: Vitamin B12 > 1000 pg/mL (239-931)
[2022-06-29 16:54] LABS: Erythrocyte Sedimentation Rate 24 mm/hr (0-30)
[2022-07-05 17:05] LABS: Albumin 3.3 g/dL (2.9-4.4); Alpha-1-Globulin 0.3 g/dL (0.0-0.4); Alpha-2-Globulin 0.8 g/dL (0.4-1.0); Gamma Globulin 0.8 g/dL (0.4-1.8); Protein, Total 6.2 g/dL (6.0-8.5)
== END ==
PROVIDERS: PCP Internal Medicine; Visit Provider Internal Medicine
DX: I10 Essential (primary) hypertension (principal); I47.0 Re-entry ventricular arrhythmia; E78.5 Hyperlipidemia, unspecified; R11.0 Nausea; R53.83 Other fatigue; N18.1 Chronic kidney disease, stage 1; M15.0 Primary generalized (osteo)arthritis
CPT/HCPCS: 36415; 80053; 80061; 82550; 82607; 84155; 84165; 84443; 85025; 85651

== ENCOUNTER → 2022-07-25 06:16 | Outpatient (CLI) | payer BC, SELFPAY ==
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
--- NOTE | 2022-07-25 06:21 | CA_ITS ---
APPROVED REPORT EXAM: Comprehensive 2D, Doppler, and color-flow Echocardiogram Airline Operations Agent: Chika Ochoa CRT Ht: 5 ft 7 in Wt: 165lbs BSA: 1.86 BP: 138/59 mmHg Indications: Chest Pain, Shortness of Breath, Fatigue 2D Dimensions Aortic Root 1.93 cm LA Volume 26.80 mL LA Volume Index 14.00 mL/m2 (M/F) 16-34 M-Mode Dimensions RVDd 3.00 cm (0.9-2.6) LA Diam 2.67 cm (1.9-4.0) LVDd 3.61 cm (3.5-5.7) Ao Diam 3.61 cm (2.0-3.7) LVDs 2.22 cm (3.5-5.7) IVSd 2.07 cm (0.6-1.1) PWd 1.00 cm (0.6-1.1) EF (Teich) 69.70% FS 38.50% EDV (Teich) 54.80 mL TAPSE 1.51 (<1.7) ESV (Teich) 16.60 mL LV Diastology E Decel Time 273.00 (160-240 msec) E/A Ratio 0.62 MED E' 6.50 (< 7 cm/sec) MED A' 11.00 cm/s E'/MED E' Ratio 7.11 (>14) LAT E' 11.10 (<10 cm/sec) LAT A' 9.50 cm/s E/LAT E' Ratio 4.16 (>14) Aortic Valve AI PHT 492.00 ms AO Peak GR. 4.70 mmHg Mitral Valve MV E Max Rafy. 46.00 (40-130 cm/s) MV A Velocity 74.00 (40-130 cm/s) E/A Ratio 0.62 MV Decel. Time 273.00 (160-240 ms) MV PHT 80.00 ms Pulmonary Valve PV Peak Velocity 118.00 (50-150 cm/s) Tricuspid Valve TR P. Velocity 213.00 cm/s RAP Estimate 10.00 mmHg RVSP 28.20 mmHg Left Ventricle Left atrium is mildly enlarged, left ventricular is normal size estimate ejection fraction 55% with no regional wall motion abnormality, diastolic parameters are within normal range. Right Ventricle Right atrium and right ventricular normal size and contractility. Aortic Valve Aortic valve is minimally thickened and fibrosed there is no aortic stenosis, there is trace aortic insufficiency. Mitral Valve Mitral valve is grossly normal, there is trace mitral regurgitation. Tricuspid Valve Tricuspid grossly normal, there is trace tricuspid regurgitation tricuspid regurgitation jet velocity is inadequate for calculation of the right ventricular systolic pressure. Pulmonic Valve Pulmonic valve is poorly visualized. Great Vessels Aortic root is normal size. Inferior vena cava has more than 50% inspiratory collapse. Pericardium No significant pericardial effusion noted. Conclusion 1. Mildly enlarged left atrium, normal left ventricular size, mild concentric left ventricular hypertrophy, estimated ejection fraction 55% with no regional wall motion abnormality, grade 1 diastolic dysfunction seen without tissue Doppler evidence of rate left atrial pressure. 2. Trace aortic, mitral and tricuspid regurgitation. 3. No significant pericardial effusion noted. 4. Inferior vena cava has more than 50% inspiratory collapse. Electronically signed by : Landen Tavera MD 07/26/2022 05:35:08
--- NOTE | 2022-07-25 06:21 | NM_ITS ---
APPROVED REPORT Exam: Nuclear Stress Test Indication: Chest pain, SOB, HTN, High cholesterol, Family history Patient Location: Outpatient Stress Tech: Pauline Murillo [place] Tech:Birttany Briggs, ARRT, RT (R)(N) Ht: 5 ft 7 in Wt: 160 lbs Bra Size: 36B HR: 90 bpm BP: 157/80 mmHg BSA: 1.84 m2 TID: 1.14 BMI: 25.0 History: Chest pain, SOB, HTN, High cholesterol, Family history Procedure: Patient exercised on Khalif protocol 7:05 minutes and sec, resting heart rate 90 bpm, resting blood pressure 157/80 mmHg, with exercise maximum heart rate achived was 155 bpm which is 98 % of the maximum predicted heart rate and blood pressure was 178/84 mmHg. Test was stopped due to SOB. Patient denied any complaint of chest pain. Patient has Good exercise capacity, achieved 10.1 METs of workload on treadmill, the blood pressure response to exercise was Adequate. Electrocardiogram Resting electrocardiogram shows sinus rhythm, with exercise there is less than 1.[address] segment depression noted from the baseline EKG. The EKG portion of the exercise Myoview was negative for ischemia. Cardiac Stress and Resting SPECT Images: Cardiac Stress and Resting SPECT images were obtained using technetium 99m Myoview 30.2 mCi stress and 10.81 mCi at rest. Gated SPECT analysis of segmental wall motion and calculation of the ejection fraction also done. Prone images were also obtained. Cardiac stress and rest SPECT images show uniform myocardial activity without segmental perfusion abnormality, computed derived ejection fraction is 62% with no regional wall motion abnormality, right ventricle is normal size and contractility. Conclusion: 1. The EKG portion of the exercise Myoview was negative for ischemia, patient has good exercise capacity achieved 10.1 METs of workload on treadmill, the blood pressure response to exercise was adequate, there was no exercise-induced chest discomfort. 2. No scintigraphic evidence of reversible ischemia seen, computer derived ejection fraction is 62% with no regional wall motion abnormality, right ventricle is normal size and contractility. 3. Normal exercise Myoview study. Electronically signed by : Landen Tavera MD 07/25/2022 14:17:01
--- NOTE | 2022-07-25 08:23 | HMH.ITSHM ---
Current Home Medications as stated by this patient Cintia Ritchie or customer response representative. []VERAPAMIL OMEPRAZOLE MULTIVITAMIN LISINOPRIL VITAMIN B12 CETIRIZINE CALCIUM BUSPIRONE ATORVASTATIN ASA VITAMIN C ACYCLOVIR
== END ==
PROVIDERS: PCP Internal Medicine; Visit Provider Nurse Practitioner
DX: R06.00 Dyspnea, unspecified (principal); I20.8 Other forms of angina pectoris; I35.0 Nonrheumatic aortic (valve) stenosis
CPT/HCPCS: 78452; 93017; 93306; A9502

== ENCOUNTER → 2022-08-14 10:22 | Outpatient (CLI) | payer BC, SELFPAY ==
--- NOTE | 2022-08-14 10:23 | MM_ITS ---
PROCEDURE INFORMATION: Exam: MG Bilateral Screening 3D Mammography Exam date and time: 08/14/2022 10:23 AM Age: 62 years old Clinical indication: Screening mammogram TECHNIQUE: Imaging protocol: Bilateral Screening tomosynthesis and 2D mammography including computer-aided detection (CAD) when performed. COMPARISON: 1. MG MM DIG SCREENING MAMM BI W/CAD 08/15/2020 11:10 AM 2. MG MM DIG SCREENING MAMM BI W/CAD 04/21/2019 8:13 AM 3. MG SCBI MM Dig screening mamm BI w/CAD 04/15/2018 10:11 AM 4. MG DMSB DIG MAMM-SCREEN ROSENDO W/CAD 04/10/2017 9:36 AM FINDINGS: MAMMOGRAPHY: Breast composition: The breast is heterogeneously dense, which may obscure small masses. Mass: None. Architectural distortion: No new or suspicious architectural distortion. Calcifications: No new or suspicious calcifications are present Asymmetric density: No new or suspicious asymmetric density is present Skin thickening: None. Axillary adenopathy: None. IMPRESSION: No mammographic evidence of malignancy. Recommend annual screening mammography unless otherwise clinically indicated. ASSESSMENT: BI-RADS category 1: Negative
== END ==
PROVIDERS: PCP Internal Medicine Cardiovascular Disease; Visit Provider Obstetrics & Gynecology
DX: Z12.31 Encounter for screening mammogram for malignant neoplasm of breast (principal)
CPT/HCPCS: 77063; 77067

== ENCOUNTER → 2023-01-01 12:07 | Outpatient (CLI) | payer BC, SELFPAY ==
[2023-01-01 13:42] LABS: Alanine Aminotransferase 18 U/L (12-78); Albumin/Globulin Ratio 1.7 (1.1-1.8); Alkaline Phosphatase 58 U/L (38-126); Anion Gap 10.6 mEq/L (5-15); Aspartate Amino Transferase 24 U/L (14-36); Bilirubin,Total 0.5 mg/dl (0.2-1.3); Blood Urea Nitrogen 21 mg/dl (7-17); Calcium 9.2 mg/dl (8.4-10.2); Carbon Dioxide 27 mmol/L (22.0-30.0); Chloride 108 mmol/L (98-107); Chol/HDL Ratio 2.6 (1-3.5); Cholesterol 138 mg/dl (140-200); Estimated Glomerular Filt Rate 56 ml/min (>60); GFR (African American) 68 ML/MIN (>60); Globulin 2.4 g/dL (1.3-3.2); Glucose 93 mg/dl (74-100); HDL Cholesterol 53 mg/dl (40-60); Potassium 4.6 mmoL/L (3.5-5.1); Sodium 141 mmol/L (136-145); Total Protein,Serum 6.4 g/dl (6.3-8.2); Triglycerides 60 mg/dl (30-150); VLDL Cholesterol 12 mg/dL (0-40)
[2023-01-01 13:53] LABS: Direct LDL Cholesterol 66.23 mg/dL (100-129)
== END ==
PROVIDERS: PCP Internal Medicine; Visit Provider Internal Medicine
DX: I10 Essential (primary) hypertension (principal); E78.5 Hyperlipidemia, unspecified
CPT/HCPCS: 80053; 80061

== ENCOUNTER 2023-03-29 10:06 | Emergency (ER) | payer BC, SELFPAY ==
[2023-03-29 10:55] VITALS: BP 141/86; PULSE 88; RESP 17; TEMP 37.1; O2SAT 98; BMI 25.9
--- NOTE | 2023-03-29 11:08 | EXP.UTC ---
Discharge Plan Disposition Patient Disposition: Home, Self-Care Condition: Good Prescriptions Prescriptions: New prednisone [prednisone] 20 mg tablet 20 mg PO BID 4 Days Qty: 8 0RF amoxicillin [amoxicillin] 875 mg tablet 875 mg PO Q12H Qty: 20 0RF benzonatate [benzonatate] 100 mg capsule 100 mg PO TIDP PRN (Reason: Cough) Qty: 30 0RF No Action cetirizine [Zyrtec] 10 mg tablet 10 mg PO DAILY Complete Multivitamin tablet 1 tab PO DAILY omega-3 fatty acids [Fish Oil Concentrate] 1,000 mg capsule 1,000 mg PO DAILY ascorbic acid (vitamin C) 1,000 mg tablet 1 g PO DAILY Vitamin B-12 5,000 mcg tablet, sublingual 5,000 mcg SUBLINGUAL DAILY lisinopril 10 mg tablet 10 mg PO DAILY aspirin [Adult Low Dose Aspirin] 81 mg tablet,delayed release (DR/EC) 81 mg PO DAILY verapamil 360 mg capsule,ext rel. pellets 24 hr 360 mg PO DAILY buspirone 10 mg tablet 10 mg PO BID omeprazole 20 mg tablet,delayed release (DR/EC) 20 mg PO DAILY atorvastatin 40 mg tablet 40 mg PO DAILY calcium carbonate 600 mg calcium (1,500 mg) tablet 600 mg PO DAILY polyethylene glycol 3350 [Miralax] 17 gram/dose powder 17 g PO BID Referrals Follow up/Referrals: Rashawn Ervin MD [Primary Care Provider] - See instructions Activity Restrictions/Add. Instructions Additional Instructions/Restrictions: Drink plenty of fluids. Take tylenol or ibuprofen for pain or fever. Take the medications as directed. Follow up with your regular doctor. GO TO THE ER FOR ANY WORSENING SYMPTOMS Clinical Impressions Clinical Impression: Bronchitis, Acute viral syndrome Instructions Patient Instructions: DI for Acute Bronchitis, DI for Viral Syndrome Discharge ED Provider: [facility] [place] HPI General Stated complaint: brain fog fever 100.[address] body ach Time Seen by Provider: 03/29/23 11:07 History of Present Illness Provider Complaint: She states that for the past 3 days she has had body aches, chills, low grade fever, cough, and malaise. Related Data Home Medications Medication Instructions Recorded Confirmed ascorbic acid (vitamin C) 1,000 mg 1 g PO DAILY Supplement 04/03/18 08/30/22 tablet aspirin 81 mg tablet,delayed 81 mg PO DAILY Heartburn 04/03/18 08/30/22 release (Adult Low Dose Aspirin) atorvastatin 40 mg tablet 40 mg PO DAILY Cholesterol 04/03/18 08/30/22 buspirone 10 mg tablet 10 mg PO BID mood 04/03/18 08/30/22 calcium carbonate 600 mg calcium 600 mg PO DAILY Supplement 04/03/18 08/30/22 (1,500 mg) tablet cetirizine 10 mg tablet (Zyrtec) 10 mg PO DAILY allergies 04/03/18 08/30/22 cyanocobalamin (vitamin B-12) 5,000 mcg sublingual DAILY 04/03/18 08/30/22 5,000 mcg sublingual tablet Supplement (Vitamin B-12) lisinopril 10 mg tablet 10 mg PO DAILY blood pressure 04/03/18 08/30/22 multivitamin,hx-hijr-szloatvs 1 tab PO DAILY Supplement 04/03/18 08/30/22 (Complete Multivitamin tablet) omega-3 fatty acids 1,000 mg 1,000 mg PO DAILY Supplement 04/03/18 08/30/22 capsule (Fish Oil Concentrate) omeprazole 20 mg tablet,delayed 20 mg PO DAILY GERD 04/03/18 08/30/22 release verapamil 360 mg 24 hr 360 mg PO DAILY Heartburn 04/03/18 08/30/22 capsule,extended release polyethylene glycol 3350 17 17 g PO BID 08/30/22 08/30/22 gram/dose oral powder (Miralax) Previous Rx's Medication Instructions Recorded amoxicillin 875 mg tablet 875 mg PO Q12H #20 tabs 03/29/23 benzonatate 100 mg capsule 100 mg PO TIDP PRN Cough #30 caps 03/29/23 prednisone 20 mg tablet 20 mg PO BID 4 days #8 tabs 03/29/23 Allergies Allergy/AdvReac Type Severity Reaction Status Date / Time meperidine [From DEMEROL] Allergy Unknown I-RASH Verified 08/30/22 09:46 [facility] Disclaimer: The information contained in this section may have been updated after the patient was seen, as this information can be updated by other use
[2023-03-29 11:16] VITALS: BP 141/86; PULSE 88; RESP 17; TEMP 37.1; O2SAT 98
[2023-03-29 11:18] LABS: UTC Influenza A Antigen Negative (Negative)
[2023-03-29 11:19] LABS: UTC Influenza B Antigen Negative (Negative)
[2023-03-29 11:19] LABS: UTC Strep Screen (Rapid) Negative (Negative)
== END 2023-03-29 11:34 | disposition home or self-care (01) ==
PROVIDERS: Emergency Provider Nurse Practitioner Family; PCP Internal Medicine
DX: U07.1 COVID-19 (principal); R50.9 Fever, unspecified; J20.9 Acute bronchitis, unspecified; I10 Essential (primary) hypertension; E78.5 Hyperlipidemia, unspecified; K21.9 Gastro-esophageal reflux disease without esophagitis
CPT/HCPCS: 87635; 87804; 87880; 99212; 99214; G0463

== ENCOUNTER 2023-07-02 16:33 | Outpatient (CLI) | payer BC, SELFPAY ==
[2023-07-02 17:26] LABS: Basophils % 0.8 % (0.1-2.0); Eosinophils # 0.1 K/mm3 (0.0-0.4); Eosinophils % 2.7 % (0.1-12.0); Hematocrit 43.4 % (37.0-47.0); Lymphocytes # 1.5 K/mm3 (0.7-4.5); Lymphocytes % 28.6 % (10-50); Mean Corpuscular HGB Conc 32.3 g/dL (31.8-35.4); Mean Corpuscular Hemoglobin 30.2 pg (27.0-31.2); Mean Corpuscular Volume 93.5 fl (81-99); Mean Platelet Volume 9.8 fl (7.4-10.4); Monocytes # 0.3 K/mm3 (0.1-1.0); Monocytes % 6.2 % (1.7-9.3); Neutrophils # 3.2 K/mm3 (1.8-7.8); Neutrophils % 61.7 % (37.0-80.0); Platelet Count 256 K/mm3 (142-424); Red Blood Count 4.64 M/mm3 (4.20-5.40); Red Cell Distribution Width 14.6 % (11.5-17.5); White Blood Count 5.2 K/mm3 (4.8-10.8)
[2023-07-02 17:45] LABS: Alanine Aminotransferase 17 U/L (12-78); Albumin Level 4.4 g/dl (3.5-5.0); Albumin/Globulin Ratio 1.9 (1.1-1.8); Alkaline Phosphatase 52 U/L (38-126); Anion Gap 13.4 mEq/L (5-15); Aspartate Amino Transferase 26 U/L (14-36); Bilirubin,Total 0.7 mg/dl (0.2-1.3); Blood Urea Nitrogen 14 mg/dl (7-17); Calcium 9.2 mg/dl (8.4-10.2); Carbon Dioxide 28 mmol/L (22.0-30.0); Chloride 102 mmol/L (98-107); Chol/HDL Ratio 3.1 (1-3.5); Cholesterol 160 mg/dl (140-200); Estimated Glomerular Filt Rate 63 ml/min (>60); GFR (African American) 77 ML/MIN (>60); Globulin 2.3 g/dL (1.3-3.2); Glucose 82 mg/dl (74-100); HDL Cholesterol 52 mg/dl (40-60); Potassium 4.4 mmoL/L (3.5-5.1); Sodium 139 mmol/L (136-145); Total Protein,Serum 6.7 g/dl (6.3-8.2); Triglycerides 74 mg/dl (30-150); VLDL Cholesterol 15 mg/dL (0-40)
[2023-07-02 17:56] LABS: Direct LDL Cholesterol 80.86 mg/dL (100-129)
== END 2023-07-02 23:59 ==
LOC: LAB.DROPOF 16:34
PROVIDERS: PCP Internal Medicine; Visit Provider Internal Medicine
DX: D18.03 Hemangioma of intra-abdominal structures (principal); E78.5 Hyperlipidemia, unspecified; I47.0 Re-entry ventricular arrhythmia; K21.9 Gastro-esophageal reflux disease without esophagitis; M15.0 Primary generalized (osteo)arthritis; N18.1 Chronic kidney disease, stage 1; I12.9 Hypertensive chronic kidney disease with stage 1 through stage 4 chronic kidney disease, or unspecified chronic kidney disease
CPT/HCPCS: 80053; 80061; 85025

== ENCOUNTER 2023-08-20 16:18 | Outpatient (CLI) | payer BC, SELFPAY ==
--- NOTE | 2023-08-20 16:20 | MM_ITS ---
PROCEDURE INFORMATION: Exam: MG Bilateral Screening 3D Mammography Exam date and time: 08/20/2023 4:11 PM Age: 63 years old Clinical indication: Screening examination TECHNIQUE: Imaging protocol: Bilateral Screening tomosynthesis and 2D mammography including computer-aided detection (CAD) when performed. COMPARISON: 1. MG MM DIG SCREENING MAMM BI W/CAD 08/14/2022 10:23 AM 2. MG MM DIG SCREENING MAMM BI W/CAD 08/15/2020 11:10 AM FINDINGS: MAMMOGRAPHY: Breast composition: The breasts are heterogeneously dense, which may obscure small masses. Mass: None. Architectural distortion: None. Calcifications: No suspicious calcifications. Asymmetric density: None. Skin thickening: None. Axillary adenopathy: None. IMPRESSION: No mammographic evidence of malignancy. Annual screening is recommended unless otherwise clinically indicated. ASSESSMENT: BI-RADS Category 1: Negative
== END 2023-08-20 23:59 ==
LOC: RAD 16:18
PROVIDERS: PCP Internal Medicine; Visit Provider Internal Medicine
DX: Z12.31 Encounter for screening mammogram for malignant neoplasm of breast (principal)
CPT/HCPCS: 77063; 77067

== ENCOUNTER 2023-12-30 09:50 | Outpatient (CLI) | payer BC, SELFPAY ==
[2023-12-30 17:51] LABS: Chloride 105 mmol/L (98-107); Potassium 4.7 mmoL/L (3.5-5.1); Sodium 139 mmol/L (136-145)
[2023-12-30 17:53] LABS: Alanine Aminotransferase 15 U/L (12-78); Aspartate Amino Transferase 24 U/L (14-36); Blood Urea Nitrogen 19 mg/dl (7-17); Estimated Glomerular Filt Rate 56 ml/min (>60); GFR (African American) 68 ML/MIN (>60)
[2023-12-30 17:54] LABS: Albumin Level 4.4 g/dl (3.5-5.0); Albumin/Globulin Ratio 1.8 (1.1-1.8); Alkaline Phosphatase 54 U/L (38-126); Anion Gap 9.7 mEq/L (5-15); Bilirubin,Total 0.7 mg/dl (0.2-1.3); Calcium 9.9 mg/dl (8.4-10.2); Carbon Dioxide 29 mmol/L (22.0-30.0); Cholesterol 181 mg/dl (140-200); Globulin 2.5 g/dL (1.3-3.2); Glucose 77 mg/dl (74-100); HDL Cholesterol 61 mg/dl (40-60); Total Protein,Serum 6.9 g/dl (6.3-8.2); Triglycerides 71 mg/dl (30-150); VLDL Cholesterol 14 mg/dL (0-40)
[2023-12-30 18:05] LABS: Direct LDL Cholesterol 85.13 mg/dL (100-129)
== END 2023-12-30 23:59 | disposition home or self-care (01) ==
LOC: LAB.DROPOF 12-31 08:23
PROVIDERS: PCP Internal Medicine; Visit Provider Internal Medicine
DX: E78.5 Hyperlipidemia, unspecified (principal); I10 Essential (primary) hypertension
CPT/HCPCS: 80053; 80061

== ENCOUNTER 2024-06-29 16:35 | Outpatient (CLI) | payer BC, SELFPAY ==
--- NOTE | 2024-06-29 16:38 | XR_ITS ---
PROCEDURE INFORMATION: Exam: XR Left Shoulder Exam date and time: 06/29/2024 4:39 PM Age: 64 years old Clinical indication: Pain; Shoulder; Left; Additional info: Left shoulder pain TECHNIQUE: Imaging protocol: Radiologic exam of the left shoulder. Views: 2 or more views. COMPARISON: CR XR CHEST 2V 06/15/2020 11:17 AM FINDINGS: Bones/joints: No acute fracture identified. Mild degenerative changes of the glenohumeral joint. Tiny calcification adjacent to the greater tuberosity compatible with mild calcific tendinitis. Soft tissues: Normal. IMPRESSION: No acute abnormality. Chronic changes as above.
[2024-06-29 17:10] LABS: Basophils # 0.1 K/mm3 (0-0.2); Basophils % 0.8 % (0.1-2.0); Eosinophils # 0.2 K/mm3 (0.0-0.4); Eosinophils % 2.5 % (0.1-12.0); Hematocrit 42.4 % (37.0-47.0); Hemoglobin 14.3 g/dL (12.2-16.2); Lymphocytes # 1.5 K/mm3 (0.7-4.5); Lymphocytes % 24.8 % (10-50); Mean Corpuscular HGB Conc 33.7 g/dL (31.8-35.4); Mean Corpuscular Hemoglobin 29.8 pg (27.0-31.2); Mean Corpuscular Volume 88.3 fl (81-99); Mean Platelet Volume 11.3 fl (7.4-10.4); Monocytes # 0.4 K/mm3 (0.1-1.0); Monocytes % 6.8 % (1.7-9.3); Neutrophils # 3.8 K/mm3 (1.8-7.8); Neutrophils % 64.9 % (37.0-80.0); Platelet Count 270 K/mm3 (142-424); Red Cell Distribution Width 13.5 % (11.5-17.5); White Blood Count 5.9 K/mm3 (4.8-10.8)
[2024-06-29 17:40] LABS: Albumin Level 4.8 g/dl (3.5-5.0); Chloride 103 mmol/L (98-107); Potassium 4.5 mmoL/L (3.5-5.1); Sodium 137 mmol/L (136-145)
[2024-06-29 17:42] LABS: Alanine Aminotransferase 19 U/L (12-78); Alkaline Phosphatase 62 U/L (38-126); Anion Gap 11.5 mEq/L (5-15); Aspartate Amino Transferase 29 U/L (14-36); Bilirubin,Total 0.8 mg/dl (0.2-1.3); Blood Urea Nitrogen 17 mg/dl (7-17); Carbon Dioxide 27 mmol/L (22.0-30.0); Estimated Glomerular Filt Rate 56 ml/min (>60); GFR (African American) 68 ML/MIN (>60); Globulin 2.4 g/dL (1.3-3.2); Total Protein,Serum 7.2 g/dl (6.3-8.2)
[2024-06-29 17:43] LABS: Calcium 10.1 mg/dl (8.4-10.2); Cholesterol 172 mg/dl (140-200); Glucose 76 mg/dl (74-100); HDL Cholesterol 57 mg/dl (40-60); Triglycerides 93 mg/dl (30-150); VLDL Cholesterol 19 mg/dL (0-40)
== END 2024-06-29 23:59 | disposition home or self-care (01) ==
LOC: RAD 16:36
PROVIDERS: PCP Internal Medicine; Visit Provider Internal Medicine
DX: E78.5 Hyperlipidemia, unspecified (principal); I10 Essential (primary) hypertension; M25.512 Pain in left shoulder
CPT/HCPCS: 73030; 80053; 80061; 85025

== ENCOUNTER 2024-07-14 09:48 | Emergency (ER) | payer BC, SELFPAY ==
[2024-07-14 09:55] VITALS: BP 142/91; PULSE 76; RESP 18; TEMP 36.7; O2SAT 98; BMI 24.7
--- NOTE | 2024-07-14 10:17 | EXP.UTC ---
Discharge Plan Disposition Patient Disposition: Home, Self-Care Condition: Good Prescriptions Prescriptions: New prednisone 10 mg tablet 10 mg PO BID 5 Days Qty: 10 0RF azithromycin [Zithromax Z-Jamel] 250 mg tablet See Rx Instructions .ROUTE .COMPLEX 5 Days Qty: 6 0RF Rx Instructions: For 250 mg dose pack: take 500 mg today (day 1), then 250 mg for 4 days (days 2-5) benzonatate 100 mg capsule 100 mg PO TID PRN (Reason: cough) Qty: 30 0RF guaifenesin [Mucinex] 1,200 mg tablet extended release 12hr 1,200 mg PO BID PRN (Reason: congestion) Qty: 10 0RF No Action cetirizine [Zyrtec] 10 mg tablet 10 mg PO DAILY ascorbic acid (vitamin C) 1,000 mg tablet 1 g PO DAILY Vitamin B-12 5,000 mcg tablet, sublingual 5,000 mcg SUBLINGUAL DAILY aspirin [Adult Low Dose Aspirin] 81 mg tablet,delayed release (DR/EC) 81 mg PO DAILY calcium carbonate 600 mg calcium (1,500 mg) tablet 600 mg PO DAILY polyethylene glycol 3350 [Miralax] 17 gram/dose powder 17 g PO BID cholecalciferol (vitamin D3) 50 mcg (2,000 unit) capsule 50 mcg PO DAILY acyclovir 400 mg tablet See Rx Instructions .ROUTE .COMPLEX Qty: 180 1RF Dose Instruction: Take 1 tablet by mouth twice daily Rx Instructions: Take 1 tablet by mouth twice daily lisinopril 10 mg tablet See Rx Instructions .ROUTE .COMPLEX Qty: 90 1RF Dose Instruction: Take 1 tablet by mouth once daily Rx Instructions: Take 1 tablet by mouth once daily atorvastatin 40 mg tablet See Rx Instructions .ROUTE .COMPLEX Qty: 90 1RF Dose Instruction: TAKE 1 TABLET BY MOUTH ONCE DAILY AT BEDTIME Rx Instructions: TAKE 1 TABLET BY MOUTH ONCE DAILY AT BEDTIME verapamil 360 mg capsule,ext rel. pellets 24 hr See Rx Instructions .ROUTE .COMPLEX Qty: 90 1RF Dose Instruction: Take 1 capsule by mouth once daily Rx Instructions: Take 1 capsule by mouth once daily buspirone 10 mg tablet See Rx Instructions .ROUTE .COMPLEX Qty: 180 1RF Dose Instruction: TAKE 1 TABLET BY MOUTH TWICE DAILY FOR MOOD Rx Instructions: TAKE 1 TABLET BY MOUTH TWICE DAILY FOR MOOD omeprazole 20 mg capsule,delayed release(DR/EC) See Rx Instructions .ROUTE .COMPLEX Qty: 90 1RF Dose Instruction: TAKE 1 CAPSULE BY MOUTH ONCE DAILY FOR GERD Rx Instructions: TAKE 1 CAPSULE BY MOUTH ONCE DAILY FOR GERD multivitamin Tablet 1 tab PO DAILY [place] 3 Fish Oil 684-1,200 mg Capsule,Delayed Release(/[place]) 1 cap PO DAILY Referrals Follow up/Referrals: Rashawn Ervin MD [Primary Care Provider] - See instructions Activity Restrictions/Add. Instructions Additional Instructions/Restrictions: Start antibiotic today. Be sure to complete entire prescription even if feeling better Monitor temp. Tylenol every 4 hours as needed and / or ibuprofen every 6 hours as needed ( As long as your primary care physician has told you that it ok to take both. For fever/aches/pains ER if no less than 101 despite Tylenol or Motrin Humidifier/vaporizer or hot steamy shower Mucinex during the day for your cough and cough suppressant only at night. Be sure to drink lots of water. *Tessalon Perles will not cause drowsiness but use at bedtime to help stop cough so that you may get some rest. *Start steroid today. Helps with inflammation therefore, cough and wheezing. Follow directions on the package. Reviewed side effects. Patient reports taking them before. Separate your dose of Prednisone and your Calcium Carbinate by 2 hours Follow up IMMEDIATELY for new or worsening of symptoms OR no noticeable improvement over the next 48-72 hours. 911 immediately for any life threatening symptoms such as chest pain or difficulty breathing Clinical Impressions Clinical Impression: Bronchitis, Sinusitis Instructions Patient Instructions: Acute Bronchitis, DI for Sinusitis Print Language Print Language: Slovenian Discharge ED Provider: Tamar Estrada [facility] [place] General Stated complaint: cough Mode of Arrival: Ambulatory Source of Information: Patient Limitations: No Limitations Time Seen by Provider: 07/14/24 10:17 Description of Symptoms (Recalled from Triage Doc. by RN): PATIENT C/O CONGESTION, DRY COUGH, AND SOA SINCE SATURDAY HEENT Symptoms (Recalled from RN notes): Yes Resp Symptoms (Recalled from RN notes): Yes Skin Symptoms (Recalled from RN notes): No MS Symptoms (Recalled from RN notes): No Functional Status (Recalled from RN notes): WNL History of Present Illness Provider Complaint: Patient states that she started over the weekend with deep cough, PND, scratchy throat and feels like it is moving into her chest States that at times when she is laying down she felt a little SOA but would feel better when she got up and moved around States today her cough was still bothering her and felt irritated in her throat and chest so she came in to get checked Related Data Home Medications ?Medication ?Instructions ?Recorded ?Confirmed ascorbic acid (vitamin C) 1,000 mg 1 g PO DAILY Supplement 04/03/18 07/14/24 tablet aspirin 81 mg tablet,delayed 81 mg PO DAILY Heartburn 04/03/18 07/14/24 release (Adult Low Dose Aspirin) calcium carbonate 600 mg PO DAILY Supplement 04/03/18 07/14/24 cetirizine 10 mg tablet (Zyrtec) 10 mg PO DAILY allergies 04/03/18 07/14/24 cyanocobalamin (vitamin B-12) 5,000 mcg sublingual DAILY 04/03/18 07/14/24 5,000 mcg sublingual tablet Supplement (Vitamin B-12) polyethylene glycol 3350 17 17 g PO BID 08/30/22 07/14/24 gram/dose oral powder (Miralax) cholecalciferol (vitamin D3) 50 50 mcg PO DAILY 12/30/23 07/14/24 mcg (2,000 unit) capsule multivitamin 1 tab PO DAILY 07/14/24 07/14/24 omega-3 fatty acids-fish oil 684 1 cap PO DAILY 07/14/24 07/14/24 mg-1,200 mg capsule,delayed release Previous Rx's ?Medication ?Instructions ?Recorded acyclovir 400 mg tablet See Rx Instructions .Route 04/07/24 .COMPLEX #180 tabs lisinopril 10 mg tablet See Rx Instructions .Route 05/07/24 .COMPLEX #90 tabs atorvastatin 40 mg tablet See Rx Instructions .Route 05/18/24 .COMPLEX #90 tabs buspirone 10 mg tablet See Rx Instructions .Route 06/16/24 .COMPLEX #180 tabs verapamil 360 mg 24 hr See Rx Instructions .Route 06/16/24 capsule,extended release .COMPLEX #90 caps omeprazole 20 mg capsule,delayed See Rx Instructions .Route 06/22/24 release .COMPLEX #90 caps azithromycin 250 mg tablet See Rx Instructions PO .COMPLEX 5 07/14/24 (Zithromax Z-Jamel) days #6 tabs benzonatate 100 mg capsule 100 mg PO TID PRN cough #30 caps 07/14/24 guaifenesin 1,200 mg tablet, 1,200 mg PO BID PRN congestion #10 07/14/24 extended release 12 hr (Mucinex) tabs prednisone 10 mg tablet 10 mg PO BID 5 days #10 tabs 07/14/24 Allergies Allergy/AdvReac Type Severity Reaction Status Date / Time meperidine (From DEMEROL) Allergy Unknown I-RASH Verified 06/29/24 10:45 Worker's Comp Is this a Worker's Comp case?: No PFSH [facility] Disclaimer: The information contained in this section may have been updated after the patient was seen, as this information can be updated by other users. Medical History Urinary tract infection History of gastroesophageal reflux (GERD) Hyperlipidemia Hypertension Torn meniscus Surgical History History of hysterectomy History of cardiac cath Social History Smoking Status: Never smoker alcohol intake: never substance use type: denies use current occupational status: other Travel in the last 8 weeks: None household members: spouse housing: house current occupational exposures/hazards: No caffeine: Yes Have you lived/traveled outside [place] in past 30 days?: No Contact w/someone who lives/traveled outside US past 30 days?: No Exposure to someone with infectious disease in past 14 days?: No Do you have a fever (greater than 100.4 F or 38 C)?: No Have you tested positive for COVID-19: No Exposed to someone with COVID-19 in past 14 days?: No Do you have a sore throat?: No Do you have a cough?: Yes Do you have any weakness?: No Do you have any diarrhea?: No Are you experiencing any unusual bleeding?: No Do you have any muscle aches/pain?: No Do you have any abdominal pain?: No Are you experiencing loss of taste or smell?: No ROS Obtained: Yes All systems reviewed & no additional complaints except as documented and Yes Systems reviewed as appropriate & no additional complaints except as documented Constitutional Constitutional: Reports system reviewed and no additional complaints, except as documented and Reports as per HPI ENT Ears, Nose, Mouth, and Throat: Reports system reviewed and no additional complaints, except as documented, Reports as per HPI, Reports nasal congestion, Reports nasal discharge and Reports other (PND) Cardiovascular Cardiovascular: Reports system reviewed and no additional complaints, except as documented, Reports as per HPI and Denies chest pain Respiratory Respiratory: Reports system reviewed and no additional complaints, except as documented, Reports as per HPI, Reports shortness of breath (at times when laying down), Reports chest congestion and Reports cough Gastrointestinal Gastrointestingal: Reports system reviewed and no additional complaints, except as documented and as per HPI Physical Exam General General appearance: alert and in no apparent distress ENT ENT exam: Present mucous membranes moist Expanded ENT Exam Nose exam: Present sinus tenderness Throat exam: Present other (pharyngeal erythema noted with PND) Respiratory Respiratory exam: Present normal lung sounds bilaterally; Absent respiratory distress or wheezes Cardiovascular Cardiovascular exam: Present regular rate, normal rhythm and normal heart sounds Abdominal Exam Abdominal exam: Present soft and normal bowel sounds; Absent distention or tenderness Neurological Exam Neurological exam: Present alert, oriented X3 and normal gait Medical Decision Making Medical Records Screening: Per USPSTF and CDC recommendations, given the prevalence of disease in our region, it is our hospital?s policy to screen for HIV and viral Hepatitis for all patients aged 18 and over and those with ongoing risk factors. Rudi Inquiry Pt receiving controlled substance: No Rudi was queried for this patient: No Vital Signs: 07/14/24 09:55 Temperature 98.0 F Temperature Source Oral Pulse Rate [Left Brachial] 76 Respiratory Rate 18 Blood Pressure [Left Arm] 142/91 H Blood Pressure Mean [Left Arm] 108 Blood Pressure Source [Left Arm] Automatic Cuff Blood Pressure Position [Left Arm] Sitting 02 Sat by Pulse Oximetry 98 Oxygen Delivery Method Room Air Medical Decision Narrative: Patient states she is on Verapamil for a rhythm problem for years and has taken Prednisone in the past without complications or reactions medication discussed with pharmacy
[2024-07-14 10:39] VITALS: BP 142/91; PULSE 76; RESP 18; TEMP 36.7; O2SAT 98
== END 2024-07-14 10:42 | disposition home or self-care (01) ==
PROVIDERS: Emergency Provider Nurse Practitioner; PCP Internal Medicine
DX: J20.9 Acute bronchitis, unspecified (principal); J01.90 Acute sinusitis, unspecified
CPT/HCPCS: 99212; G0381

== ENCOUNTER 2024-12-22 10:30 | Outpatient (CLI) | payer BC, SELFPAY ==
[2024-12-22 14:39] LABS: Hematocrit 43.5 % (37.0-47.0); Hemoglobin 14.4 g/dL (12.2-16.2); Immature Granulocytes % 0.2 %; Mean Corpuscular HGB Conc 33.1 g/dL (31.8-35.4); Mean Corpuscular Hemoglobin 29.4 pg (27.0-31.2); Mean Corpuscular Volume 88.8 fl (81-99); Nucleated Red Blood Cells % 0 %; Platelet Count 245 K/mm3 (142-424); Red Blood Count 4.90 M/mm3 (4.20-5.40); Red Cell Distribution Width-SD 43.6 fL; White Blood Count 5.5 K/mm3 (4.8-10.8)
[2024-12-22 14:59] LABS: Alanine Aminotransferase 14 U/L (12-78); Albumin Level 4.7 g/dl (3.5-5.0); Albumin/Globulin Ratio 2.0 (1.1-1.8); Alkaline Phosphatase 53 U/L (38-126); Amylase 89 U/L (30-110); Anion Gap 17.0 mEq/L (5-15); Aspartate Amino Transferase 24 U/L (14-36); Bilirubin,Total 0.7 mg/dl (0.2-1.3); Blood Urea Nitrogen 20 mg/dl (7-17); Calcium 9.8 mg/dl (8.4-10.2); Carbon Dioxide 29 mmol/L (22.0-30.0); Chloride 100 mmol/L (98-107); Cholesterol 158 mg/dl (140-200); Creatinine,Serum 1.00 mg/dl (0.52-1.04); Estimated Glomerular Filt Rate 56 ml/min (>60); GFR (African American) 68 ML/MIN (>60); Globulin 2.3 g/dL (1.3-3.2); Glucose 90 mg/dl (74-100); HDL Cholesterol 57 mg/dl (40-60); Potassium 5.0 mmoL/L (3.5-5.1); Sodium 141 mmol/L (136-145); Total Protein,Serum 7.0 g/dl (6.3-8.2); Triglycerides 58 mg/dl (30-150)
[2024-12-22 15:27] LABS: Thyroid Stimulating Hormone 1.30 uIU/mL (0.465-4.68)
== END 2024-12-22 23:59 | disposition home or self-care (01) ==
LOC: LAB.DROPOF 12-23 10:37
PROVIDERS: PCP Internal Medicine; Visit Provider Internal Medicine
DX: E78.5 Hyperlipidemia, unspecified (principal); I10 Essential (primary) hypertension; I44.2 Atrioventricular block, complete; R10.13 Epigastric pain; R10.11 Right upper quadrant pain; R53.83 Other fatigue
CPT/HCPCS: 80053; 80061; 82150; 84443; 85025

== ENCOUNTER 2024-12-28 08:51 | Outpatient (CLI) | payer BC, SELFPAY ==
--- NOTE | 2024-12-28 09:00 | US_ITS ---
FINAL REPORT TECHNIQUE: Multiple transverse and longitudinal images CLINICAL HISTORY: Right upper quadrant and epigastric pain COMPARISON: None FINDINGS: The gallbladder shows no wall thickening, distention or stone disease. No biliary ductal dilatation is appreciated. No fluid collections are seen. Limited portions of the right liver are unremarkable. Limited portions of the right kidney are unremarkable. Pancreas is largely obscured. IMPRESSION: 1. No evidence of cholelithiasis 2. No evidence of biliary obstruction Reviewed, Interpreted and Dictated by Tamara Perla MD Transcribed by Ambar Fallon Authenticated and [facility]
== END 2024-12-28 23:59 | disposition home or self-care (01) ==
LOC: RAD 08:51
PROVIDERS: PCP Internal Medicine; Visit Provider Internal Medicine
DX: R10.13 Epigastric pain (principal); R10.11 Right upper quadrant pain
CPT/HCPCS: 76705

== ENCOUNTER 2024-12-31 13:32 | Outpatient (CLI) | payer BC, SELFPAY ==
--- NOTE | 2024-12-31 13:45 | MM_ITS ---
PROCEDURE INFORMATION: Exam: MG Bilateral Screening 3D Mammography Exam date and time: 12/31/2024 1:33 PM Age: 64 years old Clinical indication: Screening examination TECHNIQUE: Imaging protocol: Bilateral Screening tomosynthesis and 2D mammography including computer-aided detection (CAD) when performed. COMPARISON: 1. MG MM DIG SCREENING MAMM BI W/CAD 08/20/2023 4:11 PM 2. MG MM DIG SCREENING MAMM BI W/CAD 08/14/2022 10:23 AM FINDINGS: MAMMOGRAPHY: Breast composition: The breasts are heterogeneously dense, which may obscure small masses. Mass: None. Architectural distortion: None. Calcifications: No suspicious calcifications. Asymmetric density: None. Skin thickening: None. Axillary adenopathy: None. IMPRESSION: No mammographic evidence of malignancy. Annual screening is recommended unless otherwise clinically indicated. ASSESSMENT: BI-RADS Category 1: Negative.
== END 2024-12-31 23:59 | disposition home or self-care (01) ==
LOC: RAD 13:32
PROVIDERS: PCP Internal Medicine; Visit Provider Internal Medicine
DX: Z12.31 Encounter for screening mammogram for malignant neoplasm of breast (principal); R92.333 Mammographic heterogeneous density, bilateral breasts
CPT/HCPCS: 77063; 77067

== ENCOUNTER 2025-01-01 10:01 | Emergency (ER) | payer BC, SELFPAY ==
[2025-01-01] VITALS (8 sets, daily range): BP systolic 119–183; BP diastolic 66–97; PULSE 54–78; RESP 16–20; TEMP 36.5; O2SAT 95–99; BMI 25.0
--- NOTE | 2025-01-01 10:08 | ECG_ITS ---
APPROVED REPORT Exam: Resting ECG HR:68 bpm ECG Measurements Heart Rate 68 AXES MT 167 P 66 QRSd 86 QRS 67 QT 354 T 74 QTc 372 Conclusion SINUS RHYTHM NORMAL ECG UNCONFIRMED REPORT Normal sinus rhythm. No ST elevation or depression. QTc within normal limits Electronically signed by : NOLA GUERRA, 01/02/2025 07:41:12
--- NOTE | 2025-01-01 10:20 | XR_ITS ---
FINAL REPORT CLINICAL HISTORY: Shortness of breath COMPARISON: None FINDINGS: CHEST 1 VIEW No acute pulmonary opacity is present. There is no evidence of effusion or pneumothorax. Mediastinum is unremarkable. Heart size is normal. IMPRESSION: No acute process. Reviewed, Interpreted and Dictated by Tamara Perla MD Transcribed by Mica Hardy Authenticated and [facility]
[2025-01-01 10:25] LABS: Hematocrit 43.0 % (37.0-47.0); Hemoglobin 14.4 g/dL (12.2-16.2); Immature Granulocytes % 0.1 %; Mean Corpuscular HGB Conc 33.5 g/dL (31.8-35.4); Mean Corpuscular Hemoglobin 29.3 pg (27.0-31.2); Mean Corpuscular Volume 87.4 fl (81-99); Nucleated Red Blood Cells % 0 %; Platelet Count 287 K/mm3 (142-424); Red Blood Count 4.92 M/mm3 (4.20-5.40); Red Cell Distribution Width-SD 43.4 fL; White Blood Count 6.9 K/mm3 (4.8-10.8)
--- NOTE | 2025-01-01 10:27 | HMH.EDGENADL ---
Discharge Plan Disposition Patient Disposition: Home, Self-Care Prescriptions Prescriptions: No Action coenzyme Q10 100 mg capsule 100 mg PO DAILY acyclovir 400 mg tablet 400 mg PO DAILY cetirizine [Zyrtec] 10 mg tablet 10 mg PO DAILY ascorbic acid (vitamin C) 1,000 mg tablet 1 g PO DAILY Vitamin B-12 5,000 mcg tablet, sublingual 5,000 mcg SUBLINGUAL DAILY aspirin [Adult Low Dose Aspirin] 81 mg tablet,delayed release (DR/EC) 81 mg PO DAILY calcium carbonate 600 mg calcium (1,500 mg) tablet 600 mg PO DAILY polyethylene glycol 3350 [Miralax] 17 gram/dose powder 17 g PO BID cholecalciferol (vitamin D3) 50 mcg (2,000 unit) capsule 50 mcg PO DAILY atorvastatin 40 mg tablet See Rx Instructions .ROUTE .COMPLEX Qty: 90 1RF Dose Instruction: TAKE 1 TABLET BY MOUTH ONCE DAILY AT BEDTIME Rx Instructions: TAKE 1 TABLET BY MOUTH ONCE DAILY AT BEDTIME lisinopril 10 mg tablet See Rx Instructions .ROUTE .COMPLEX Qty: 90 1RF Dose Instruction: Take 1 tablet by mouth once daily Rx Instructions: Take 1 tablet by mouth once daily omeprazole 20 mg capsule,delayed release(DR/EC) See Rx Instructions .ROUTE .COMPLEX Qty: 90 1RF Dose Instruction: TAKE 1 CAPSULE BY MOUTH ONCE DAILY FOR GERD Rx Instructions: TAKE 1 CAPSULE BY MOUTH ONCE DAILY FOR GERD verapamil 360 mg capsule,ext rel. pellets 24 hr See Rx Instructions .ROUTE .COMPLEX Qty: 90 1RF Dose Instruction: Take 1 capsule by mouth once daily Rx Instructions: Take 1 capsule by mouth once daily buspirone 10 mg tablet See Rx Instructions .ROUTE .COMPLEX Qty: 180 1RF Dose Instruction: TAKE 1 TABLET BY MOUTH TWICE DAILY FOR MOOD Rx Instructions: TAKE 1 TABLET BY MOUTH TWICE DAILY FOR MOOD multivitamin Tablet 1 tab PO DAILY [place] 3 Fish Oil 684-1,200 mg Capsule,Delayed Release(Dr/Ec) 1 cap PO DAILY benzonatate 100 mg capsule 100 mg PO TID PRN (Reason: cough) Qty: 30 0RF guaifenesin [Mucinex] 1,200 mg tablet extended release 12hr 1,200 mg PO BID PRN (Reason: congestion) Qty: 10 0RF Referrals Follow up/Referrals: Rashawn Ervin MD [Primary Care Provider, Medical] - See instructions Ac Page MD [Staff Physician, Cardiology] - See instructions Activity Restrictions/Add. Instructions Additional Instructions/Restrictions: You are being referred to a preschool program director, Dr. Page. I encourage you to call them over the next day or 2 to schedule an appointment. It is possible that you were going in and out of a heart arrhythmia and may need Holter monitor in the future. I also encourage you to follow-up with Dr. Sands with gastroenterology for your reflux symptoms. If you develop any new or worsening symptoms, or if you become concerned for your health for any reason, return to the emergency department for evaluation Clinical Impressions Clinical Impression: Fatigue, Chest discomfort, Shortness of breath Print Language Print Language: Swedish Discharge ED Provider: Wilber [facility] Adult HPI General Chief complaint: Recheck/Abnormal Lab/Rx Stated complaint: Ref: Dr Ervin. High Bp, SOA, High pulse Time Seen by Provider: 01/01/25 10:05 Mode of Arrival: Ambulatory Source of Information: Patient Description of Symptoms (Recalled from ER Triage Doc. by RN): patient presents to ED with not feeling well for 1 month. Patient has c/o of SOA, decreased energy, and some abd pain. Patient states she has seen for a gallbladder work up and reports everything was negative. Pt had recent blood work on saturday and everything looked fine. Patient also states at 11:00pm last night her apple watch went off and reported her heart rate increased to 120's-130's. Pt reports increased stress recently. History of Present Illness HPI narrative: Cintia Ritchie is a 64y female with a history of AIVR, hyperlipidemia, hypertension who presents to the emergency department for complaints of 1 month of fatigue as well as chest discomfort and shortness of breath that is intermittent. Patient states that for the past month, she has felt overly fatigued. She will have intermittent episodes where she feels short of breath and has discomfort in the middle of her chest, although she notes that she has dyspepsia and takes omeprazole. She denies any actual chest pain. She notes that she has also had intermittent sharp pains in her right upper quadrant and had a right upper quadrant ultrasound performed by Dr. Ervin that was negative. She states that she had blood work at the beginning of the week that all seem normal, however was told today that if her symptoms continued or worsen that she needed to be evaluated preschool program director or to come to the emergency department for cardiac workup. She denies any fevers, vomiting or diarrhea but does note that she sometimes has issues with constipation. She denies any abdominal pain. She denies any history of heart attacks, heart failure, heart stents and denies any known issues with her thyroid. She denies any history of blood clots and has not had hemoptysis recently. Related Data Home Medications ?Medication ?Instructions ?Recorded ?Confirmed ascorbic acid (vitamin C) 1,000 mg 1 g PO DAILY Supplement 04/03/18 12/22/24 tablet aspirin 81 mg tablet,delayed 81 mg PO DAILY Heartburn 04/03/18 12/22/24 release (Adult Low Dose Aspirin) calcium carbonate 600 mg PO DAILY Supplement 04/03/18 12/22/24 cetirizine 10 mg tablet (Zyrtec) 10 mg PO DAILY allergies 04/03/18 12/22/24 cyanocobalamin (vitamin B-12) 5,000 mcg sublingual DAILY 04/03/18 12/22/24 5,000 mcg sublingual tablet Supplement (Vitamin B-12) polyethylene glycol 3350 17 17 g PO BID 08/30/22 12/22/24 gram/dose oral powder (Miralax) cholecalciferol (vitamin D3) 50 50 mcg PO DAILY 12/30/23 12/22/24 mcg (2,000 unit) capsule multivitamin 1 tab PO DAILY 07/14/24 12/22/24 omega-3 fatty acids-fish oil 684 1 cap PO DAILY 07/14/24 12/22/24 mg-1,200 mg capsule,delayed release acyclovir 400 mg tablet 400 mg PO DAILY 12/22/24 12/22/24 coenzyme Q10 100 mg capsule 100 mg PO DAILY 12/22/24 12/22/24 Previous Rx's ?Medication ?Instructions ?Recorded benzonatate 100 mg capsule 100 mg PO TID PRN cough #30 caps 07/14/24 guaifenesin 1,200 mg tablet, 1,200 mg PO BID PRN congestion #10 07/14/24 extended release 12 hr (Mucinex) tabs atorvastatin 40 mg tablet See Rx Instructions .Route 11/17/24 .COMPLEX #90 tabs lisinopril 10 mg tablet See Rx Instructions .Route 11/26/24 .COMPLEX #90 tabs buspirone 10 mg tablet See Rx Instructions .Route 12/15/24 .COMPLEX #180 tabs omeprazole 20 mg capsule,delayed See Rx Instructions .Route 12/15/24 release .COMPLEX #90 caps verapamil 360 mg 24 hr See Rx Instructions .Route 12/15/24 capsule,extended release .COMPLEX #90 caps Allergies Allergy/AdvReac Type Severity Reaction Status Date / Time meperidine (From DEMEROL) Allergy Unknown I-RASH Verified 12/22/24 09:47 [facility] Disclaimer: The information contained in this section may have been updated after the patient was seen, as this information can be updated by other users. Medical History Urinary tract infection History of gastroesophageal reflux (GERD) Hyperlipidemia Hypertension Torn meniscus Surgical History History of hysterectomy History of cardiac cath Social History Smoking Status: Never smoker alcohol intake: never substance use type: denies use current occupational status: other Travel in the last 8 weeks?: None household members: spouse housing: house current occupational exposures/hazards: No caffeine: Yes Have you lived/traveled outside [place] in past 30 days?: No Contact w/someone who lives/traveled outside US past 30 days?: No Exposure to someone with infectious disease in past 14 days?: No Do you have a fever (greater than 100.4 F or 38 C)?: No Have you tested positive for COVID-19?: No Exposed to someone with COVID-19 in past 14 days?: No Do you have a sore throat?: No Do you have a cough?: No Do you have any weakness?: No Do you have any diarrhea?: No Are you experiencing any unusual bleeding?: No Do you have any muscle aches/pain?: No Do you have any abdominal pain?: No Are you experiencing loss of taste or smell?: No Other Medical History Have you received the Flu Vaccine for this season: Yes Have you received the Pneumonia Vaccine: No ROS Obtained: Yes Systems reviewed as appropriate & no additional complaints except as documented Physical Exam General General appearance: alert and in no apparent distress Head Head exam: atraumatic Eye Eye exam: Present normal appearance ENT ENT exam: Present normal external ear exam Neck Neck exam: Present full ROM Chest Chest inspection: Present symmetric chest wall rise Respiratory Respiratory exam: Present normal lung sounds bilaterally; Absent respiratory distress Cardiovascular Cardiovascular exam: Present regular rate and normal rhythm Abdominal Exam Abdominal exam: Present soft; Absent tenderness or guarding Extremities Exam Extremities exam: Present normal inspection Back Exam Back exam: Present normal inspection Neurological Exam Neurological exam: Present alert and oriented X3 Psychiatric Psychiatric exam: Present normal affect Skin Skin exam: Present warm and dry Medical Decision Making Medical Records Screening: Per USPSTF and CDC recommendations, given the prevalence of disease in our region, it is our hospital?s policy to screen for HIV and viral Hepatitis for all patients aged 18 and over and those with ongoing risk factors. Rudi Inquiry Pt receiving controlled substance: No Vital Signs: 01/01/25 10:10 01/01/25 10:15 01/01/25 10:30 Temperature 97.7 F Temperature Source Oral Pulse Rate 70 69 Pulse Rate [Right Brachial] 77 Respiratory Rate 20 16 Blood Pressure 123/97 H Blood Pressure [Right Arm] 183/81 H Blood Pressure Mean 105 Blood Pressure Mean [Right Arm] 115 Blood Pressure Source [Right Arm] Automatic Cuff Blood Pressure Position [Right Arm] Sitting 02 Sat by Pulse Oximetry 99 98 98 Oxygen Delivery Method Room Air Room Air Room Air 01/01/25 10:33 01/01/25 10:45 01/01/25 11:00 Temperature Temperature Source Pulse Rate 65 59 L Pulse Rate [Right Brachial] 62 Respiratory Rate 16 16 16 Blood Pressure 119/66 Blood Pressure [Right Arm] Blood Pressure Mean 83 Blood Pressure Mean [Right Arm] Blood Pressure Source [Right Arm] Blood Pressure Position [Right Arm] 02 Sat by Pulse Oximetry 96 98 97 Oxygen Delivery Method Room Air Room Air Room Air Lab Data Lab Results 01/01/25 10:10: WBC 6.9, RBC 4.92, Hgb 14.4, Hct 43.0, MCV 87.4, MCH 29.3, MCHC 33.5, RDW 13.4, Plt Count 287, MPV 10.6 H, Neut % (Auto) 58.7, Lymph % (Auto) 29.2, Emery % (Auto) 7.4, Eos % (Auto) 3.6, Baso % (Auto) 1.0, Neut # (Auto) 4.0, Lymph # (Auto) 2.0, Emery # (Auto) 0.5, Eos # (Auto) 0.3, Baso # (Auto) 0.1, D-Dimer 0.38, Sodium 139, Potassium 4.1, Chloride 101, Carbon Dioxide 28, Anion Gap 14.1, BUN 16, Creatinine 1.00, Estimated Creat Clear 65, Estimated GFR 56 L, Est GFR ( Amer) 68, Glucose 90, Calcium 10.1, Magnesium 2.1, Total Bilirubin 0.7, AST 29, ALT 15, Alkaline Phosphatase 55, Troponin I < 0.01, NT-Pro-B Natriuret Pep 59.1, Total Protein 7.6, Albumin 4.8, Globulin 2.8, Albumin/Globulin Ratio 1.7, TSH 1.23, Free T4 1.14, HCV Ab CATALINA w/Rflx PCR Qn Negative, HIV Ag/Ab Combo Qual Negative 01/01/25 10:10 01/01/25 10:10 Orders (Tests/Meds): ED MEDICATIONS Discontinued Medications Generic Name Dose Route Start Last Admin Trade Name Freq PRN Reason Stop Dose Admin Belladonna Alkaloids 60 ml 01/01/25 10:37 01/01/25 10:43 Belladonna Alkaloids 60 Ml Ml PO 01/01/25 10:38 60 ml ONCE ONE Administration ORDERS Category Date Time Status CXR --portable [XR chest portable] Stat Exams 01/01/25 10:20 Completed BNP [NT Pro Brain Natriuretic Pep.] Stat Lab 01/01/25 10:10 Completed CBC w/Auto Diff [Complete Blood Count Auto Diff] Stat Lab 01/01/25 10:10 Completed CMP [Comprehensive Metabolic Panel] Stat Lab 01/01/25 10:10 Completed D-Dimer Stat Lab 01/01/25 10:10 Completed Free T4 (Free Thyroxine) Stat Lab 01/01/25 10:10 Completed HIV Combo Stat Lab 01/01/25 10:10 Completed Hepatitis C Ab Qual. W/ RFX Stat Lab 01/01/25 10:10 Completed Magnesium Stat Lab 01/01/25 10:10 Completed TSH [Thyroid Stimulating Hormone] Stat Lab 01/01/25 10:10 Completed Troponin I Q3H Lab 01/01/25 13:30 Ordered Troponin I Q3H Lab 01/01/25 16:30 Ordered Troponin I Stat Lab 01/01/25 10:10 Completed ECG Data Tracing #1: I reviewed this ECG and interpreted as documented below: Normal sinus rhythm. No ST elevation or depression. No T wave inversions. QTc normal at 372. Normal WI interval of 167 Medical Decision Narrative: Cintia Ritchie is a 64y female with a history of AIVR, hyperlipidemia, hypertension who presents to the emergency department for complaints of 1 month of fatigue as well as chest discomfort and shortness of breath that is intermittent. Patient states that for the past month, she has felt overly fatigued. She will have intermittent episodes where she feels short of breath and has discomfort in the middle of her chest, although she notes that she has dyspepsia and takes omeprazole. She denies any actual chest pain. She notes that she has also had intermittent sharp pains in her right upper quadrant and had a right upper quadrant ultrasound performed by Dr. Ervin that was negative. She states that she had blood work at the beginning of the week that all seem normal, however was told today that if her symptoms continued or worsen that she needed to be evaluated preschool program director or to come to the emergency department for cardiac workup. She denies any fevers, vomiting or diarrhea but does note that she sometimes has issues with constipation. She denies any abdominal pain. She denies any history of heart attacks, heart failure, heart stents and denies any known issues with her thyroid. She denies any history of blood clots and has not had hemoptysis. On arrival, patient is normotensive, heart rate within normal limits, afebrile, breathing carefully on room air with oxygen saturation 97% SpO2. Physical exam, stated above, revealed an overall well-appearing female in no distress. Cardiac exam revealed no murmurs or rubs. Pulmonary exam with no wheezing, rales or rhonchi. Abdomen is soft, nontender nondistended. She has no appreciable peripheral edema. Pulses are 2+ in all extremities. Differential diagnosis includes, but is not limited to: Cardiac arrhythmia, [id number], Brugada syndrome, ACS, pulmonary embolism, pneumonia, GERD, pericarditis, myocarditis, CHF, metabolic derangement such as hypothyroidism, electrolyte derangement, among others. The most morbid conditions were considered and workup was based on these. Workup in the emerged part included: Chest x-ray, EKG, troponin, BNP, CBC, CMP, magnesium level, D-dimer, TSH, free T4 Chest x-ray interpreted by me personally prior to official radiology read. No focal consolidations, pneumothoraces or widening of the mediastinum. Cardiac silhouette does not appear enlarged. Unremarkable chest x-ray. EKG with normal sinus rhythm and no ischemic changes and no evidence of a prolonged QT interval or shortened WI interval. See interpretation above Previous documentation was reviewed and patient recently had a right upper quadrant ultrasound that showed no evidence of cholelithiasis or cholecystitis. Laboratory studies interpreted by me personally. No leukocytosis, no anemia, D-dimer negative at 0.38, electrolytes within normal limits with no CHETAN. Liver enzymes unremarkable with normal bilirubin. Magnesium normal at 2.1. Initial troponin less than 0.01. BNP normal at 59.1. Thyroid studies unremarkable with TSH of 1.23, free T4 of 1.14. Patient has been on telemetry throughout her entire ED stay and has had no evidence of A-fib or heart rate abnormalities here in the emergency department. Is felt that she could be going into paroxysmal A-fib and would benefit from cardiology evaluation and possibly Holter monitor. Will refer her to preschool program director today. I also encouraged her to follow with Dr. Sands, whom she was referred to by her primary care physician, for follow-up regarding her reflux symptoms. All questions were answered. Return precautions were given. She demonstrated understanding and was in agreement this plan. She was then discharged with the emergency department in stable condition. Critical Care Critical Care Time Critical Care Time: No
[2025-01-01 10:30] LABS: Alanine Aminotransferase 15 U/L (12-78); Albumin Level 4.8 g/dl (3.5-5.0); Albumin/Globulin Ratio 1.7 (1.1-1.8); Alkaline Phosphatase 55 U/L (38-126); Anion Gap 14.1 mEq/L (5-15); Aspartate Amino Transferase 29 U/L (14-36); Bilirubin,Total 0.7 mg/dl (0.2-1.3); Blood Urea Nitrogen 16 mg/dl (7-17); Calcium 10.1 mg/dl (8.4-10.2); Carbon Dioxide 28 mmol/L (22.0-30.0); Chloride 101 mmol/L (98-107); Creatinine Clearance Estimated 65 mL/min (50-200); Creatinine,Serum 1.00 mg/dl (0.52-1.04); Estimated Glomerular Filt Rate 56 ml/min (>60); GFR (African American) 68 ML/MIN (>60); Globulin 2.8 g/dL (1.3-3.2); Glucose 90 mg/dl (74-100); Magnesium 2.1 mg/dl (1.6-2.3); Potassium 4.1 mmoL/L (3.5-5.1); Sodium 139 mmol/L (136-145); Total Protein,Serum 7.6 g/dl (6.3-8.2)
[2025-01-01 10:36] LABS: D-Dimer 0.38 ug/mL (0.0-0.5)
[2025-01-01 10:43] LABS: NT Pro Brain Natriuretic Pep. 59.1 pg/mL (0-125); Troponin I < 0.01 ng/ml (0.00-0.034)
[2025-01-01] MEDS: BELLADONNA ALKALOIDS 60 ML ML PO (10:43)
[2025-01-01 11:01] LABS: Thyroid Stimulating Hormone 1.23 uIU/mL (0.465-4.68)
[2025-01-01 11:05] LABS: Free T4 (Free Thyroxine) 1.14 ng/dl (0.78-2.19)
--- NOTE | 2025-01-01 11:11 | PC.NURSE ---
pt to restroom
[2025-01-01 11:30] LABS: Hepatitis C Ab Qual. W/ RFX NEGATIVE (Negative)
== END 2025-01-01 11:45 | disposition home or self-care (01) ==
PROVIDERS: Emergency Provider Student in an Organized Health Care Education/Training Program; PCP Internal Medicine
DX: R07.89 Other chest pain (principal); I10 Essential (primary) hypertension; R06.02 Shortness of breath; R53.83 Other fatigue
CPT/HCPCS: 71045; 80053; 83735; 83880; 84439; 84443; 84484; 85025; 85378; 86803; 87389; 93005; 99285

== ENCOUNTER 2025-01-11 13:59 | Outpatient (CLI) | payer BC, SELFPAY | END 2025-01-11 23:59 | disposition home or self-care (01) | LOC: RT 14:00 | PROVIDERS: PCP Internal Medicine; Visit Provider Physician Assistant | DX: I48.91 Unspecified atrial fibrillation (principal); I48.92 Unspecified atrial flutter; I49.1 Atrial premature depolarization; I49.3 Ventricular premature depolarization | CPT/HCPCS: 93270 ==

== ENCOUNTER 2025-02-22 10:22 | Outpatient (CLI) | payer MEDICARE, SELFPAY ==
[2025-02-22 11:38] LABS: PHA INR Fingerstick 1.7 (0.9-1.1)
== END 2025-02-22 12:16 ==
LOC: ACC 10:23
PROVIDERS: PCP Internal Medicine; Visit Provider Physician Assistant
DX: I48.91 Unspecified atrial fibrillation (principal); Z79.01 Long term (current) use of anticoagulants
CPT/HCPCS: 85610; 99211; G0463

== ENCOUNTER 2025-02-25 09:47 | Outpatient (CLI) | payer MEDICARE, SELFPAY ==
[2025-02-25 10:56] LABS: PHA INR Fingerstick 1.7 (0.9-1.1)
== END 2025-02-25 10:57 ==
LOC: ACC 09:48
PROVIDERS: PCP Internal Medicine; Visit Provider Physician Assistant
DX: I48.91 Unspecified atrial fibrillation (principal); Z79.01 Long term (current) use of anticoagulants
CPT/HCPCS: 85610; 99211; G0463

== ENCOUNTER 2025-03-01 08:57 | Outpatient (CLI) | payer MEDICARE, SELFPAY ==
[2025-03-01 09:14] LABS: PHA INR Fingerstick 2.1 (0.9-1.1)
== END 2025-03-01 09:17 ==
LOC: ACC 08:58
PROVIDERS: PCP Internal Medicine; Visit Provider Physician Assistant
DX: I48.91 Unspecified atrial fibrillation (principal); Z79.01 Long term (current) use of anticoagulants
CPT/HCPCS: 85610; 99211; G0463

== ENCOUNTER 2025-03-02 06:46 | Outpatient (CLI) | payer MEDICARE, SELFPAY ==
--- NOTE | 2025-03-02 | CA_ITS ---
APPROVED REPORT Exam: Exercise Treadmill Technologist: Brunilda Goins Ht: 5 ft 7 in Wt: 162 lbs BSA: 1.85 m2 HR: 61 bpm BP: 172/77 mmHg Stress Test Details Test: Exercise stress testing was performed using a Khalif protocol. HR Resting HR: 61 bpm Max Heart Rate (APMHR): 155.285730 bpm Max HR Achieved: 136 bpm Target HR (85% APMHR): 131.597567 bpm % of APMHR: 87.74 Recovery HR: 78 bpm BP Resting BP: 172.0/77.0 mmHg Max BP: 190.0/86.0 mmHg Recovery BP: 140.0/72.0 mmHg ECG Stress ECG Conclusion Test stopped at 6 minutes due to dyspnea, chest tightness. Symptoms: Chest tightness - non limiting Arrhythmias/Ectopy: PVC/ ventricular couplet/ PAC ST-T Changes: Less than 0.[address] segment changes. Conclusion: DTS = 2 Electronically signed by : Johnna Abbott MD 03/02/2025 11:49:44
--- NOTE | 2025-03-02 07:00 | NM_ITS ---
APPROVED REPORT Exam: Nuclear Stress Test Indication: htn, hyperlipidemia, fm hx., a-fib, angina, palpitations Patient Location: Outpatient Stress Tech: Brunilda Goins [place] Tech:Allison CarterTHOR RT (R)(N)(M) Ht: 5 ft 7 in Wt: 160 lbs HR: 63 bpm BP: 172/77 mmHg BSA: 1.84 m2 TID: 1.35 BMI: 25.0 History: htn, hyperlipidemia, fm hx., a-fib, angina, palpitations Procedure: Patient exercised on Khalif protocol 6:00 minutes and sec, resting heart rate 63 bpm, resting blood pressure 172/77 mmHg, with exercise maximum heart rate achived was 136 bpm which is 87 % of the maximum predicted heart rate and blood pressure was 190/86 mmHg. Test was stopped due to fatigue. Patient denied any complaint of chest pain. Patient has exercise capacity, achieved 7.1 METs of workload on treadmill, the blood pressure response to exercise was . Cardiac Stress and Resting SPECT Images: Cardiac Stress and Resting SPECT images were obtained using technetium 99m Myoview 30.7 mCi stress and 10.03 mCi at rest. Resting and stress imaging in supine and prone positions demonstrate no evidence of fixed or reversible perfusion defects. There is increase in transient ischemic dilatation ratio (TID 1.35), which may be suggestive of possible multivessel disease or balanced ischemia. Gated imaging demonstrates normal global and regional LV systolic function. LVEF is calculated at 62%. Conclusion: No evidence of fixed or reversible perfusion defects. There is increase in transient ischemic dilatation ratio (TID 1.35), which may be suggestive of possible multivessel disease or balanced ischemia. Gated imaging demonstrates normal global and regional LV systolic function. LVEF is calculated at 62%. Electronically signed by : Johnna Abbott MD 03/02/2025 11:49:25
[2025-03-02] MEDS: SODIUM CHLORIDE 0.9% 10ML SYR (RAD ONLY) 10 ML IV ×2 (07:05→08:45)
[2025-03-02 08:30] VITALS: BP 172/77; BP 190/86; PULSE 61; RESP 16
[2025-03-02] MEDS: ISOTOPE MYOVIEW (PER STUDY) 1 DOSE IV (09:16)
--- NOTE | 2025-03-02 09:30 | CA_ITS ---
APPROVED REPORT EXAM: Comprehensive 2D, Doppler, and color-flow Echocardiogram Gasoline Tester: Chika Ochoa CRT Ht: 5 ft 7 in Wt: 162lbs BSA: 1.85 BP: 113/59 mmHg Indications: Chest Pain, Atrial Fibrillation, Palpitations, Fatigue Echo Enhancing Agent Indication: Rule out Shunt Agent(s) / Amount(s) Used: Agitated Saline 5 cc Comments: B/S performed 2D Dimensions LA Volume 31.10 mL LA Volume Index 16.50 mL/m2 (M/F) 16-34 M-Mode Dimensions RVDd 2.60 cm (0.9-2.6) LA Diam 3.03 cm (1.9-4.0) LVDd 4.06 cm (3.5-5.7) LVDs 2.39 cm (3.5-5.7) IVSd 1.89 cm (0.6-1.1) PWd 1.14 cm (0.6-1.1) EF (Teich) 72.40% FS 41.10% EDV (Teich) 72.50 mL ESV (Teich) 20.00 mL LV Diastology E Decel Time 170 (160-240 msec) E/A Ratio 0.75 MED A' 11.10 cm/s LAT A' 11.20 cm/s Aortic Valve AI PHT 472.00 ms AO Peak GR. 6.90 mmHg Mitral Valve MV E Max Rafy. 59.0 (40-130 cm/s) MV A Velocity 79.0 (40-130 cm/s) E/A Ratio 0.75 MV PHT 50.0 ms Pulmonary Valve PV Peak Velocity 153.0 (50-150 cm/s) Tricuspid Valve TR P. Velocity 234.00 cm/s RAP Estimate 10.00 mmHg RVSP 32.00 mmHg Left Ventricle The left ventricle is normal size. Left ventricular systolic function is normal. The left ventricular ejection fraction is within the normal range. There is normal left ventricular wall thickness. There is normal LV segmental wall motion. The left ventricular diastolic function is indeterminate. LVEF is 55% Right Ventricle The right ventricle is normal size. The right ventricular systolic function is normal. Atria The left atrium is mildly dilated. The right atrium is mildly dilated. The interatrial septum appears aneurysmal. There is no color Doppler evidence of interatrial shunt. Agitated saline administration demonstrates no evidence of interatrial shunt. Aortic Valve The aortic valve is mildly thickened. There is no hemodynamically significant aortic valvular stenosis. Mild aortic regurgitation is present. Mitral Valve The mitral valve is normal in structure. No evidence of mitral valve stenosis. Mild mitral regurgitation is present. Tricuspid Valve The tricuspid valve leaflets are thin and pliable. Mild tricuspid regurgitation. RVSP is 20-25 mmHg. Pulmonic Valve The pulmonary valve is grossly normal in structure. Mild pulmonic valve regurgitation is present. Great Vessels The aortic root is normal in size. IVC is normal in size and collapses >50% with inspiration. Pericardium There is no pericardial effusion. Other Information Study Quality: Fair Conclusion Normal biventricular systolic function. Mild biatrial dilation. Mild AI, mild MR, mild TR, mild IN. The interatrial septum appears aneurysmal. Agitated saline administration demonstrates no evidence of interatrial shunt. Electronically signed by : Johnna Abbott MD 03/06/2025 20:54:32
== END 2025-03-02 23:59 | disposition home or self-care (01) ==
LOC: RAD 06:48
PROVIDERS: PCP Internal Medicine; Visit Provider Physician Assistant
DX: I49.3 Ventricular premature depolarization (principal); I49.1 Atrial premature depolarization; I48.91 Unspecified atrial fibrillation; R94.31 Abnormal electrocardiogram [ECG] [EKG]; Z82.49 Family history of ischemic heart disease and other diseases of the circulatory system
CPT/HCPCS: 78452; 93017; 93018; 93306; A9502

== ENCOUNTER 2025-03-08 09:21 | Outpatient (CLI) | payer MEDICARE, SELFPAY ==
[2025-03-08 10:29] LABS: PHA INR Fingerstick 2.7 (0.9-1.1)
== END 2025-03-08 10:30 ==
LOC: ACC 09:22
PROVIDERS: PCP Internal Medicine; Visit Provider Physician Assistant
DX: I48.91 Unspecified atrial fibrillation (principal); Z79.01 Long term (current) use of anticoagulants
CPT/HCPCS: 85610; 99211; G0463

== ENCOUNTER 2025-03-15 09:24 | Outpatient (CLI) | payer MEDICARE, SELFPAY ==
[2025-03-15 11:34] LABS: PHA INR Fingerstick 2.4 (0.9-1.1)
== END 2025-03-15 11:41 ==
LOC: ACC 09:25
PROVIDERS: PCP Internal Medicine; Visit Provider Physician Assistant
DX: I48.91 Unspecified atrial fibrillation (principal); Z79.01 Long term (current) use of anticoagulants
CPT/HCPCS: 85610; 99211; G0463

== ENCOUNTER 2025-04-05 09:47 | Outpatient (CLI) | payer MEDICARE, SELFPAY ==
[2025-04-05 10:49] LABS: PHA INR Fingerstick 2.2 (0.9-1.1)
== END 2025-04-05 11:49 ==
LOC: ACC 09:48
PROVIDERS: PCP Internal Medicine; Visit Provider Physician Assistant
DX: I48.91 Unspecified atrial fibrillation (principal); Z79.01 Long term (current) use of anticoagulants
CPT/HCPCS: 85610; 99211; G0463

== ENCOUNTER 2025-04-12 08:21 | Day surgery (SDC) | payer MEDICARE, SELFPAY ==
[2025-04-12] VITALS (12 sets, daily range): BP systolic 117–151; BP diastolic 53–71; PULSE 56–78; RESP 20; O2SAT 93–97; BMI 25.7
--- NOTE | 2025-04-12 07:01 | IR_ITS ---
APPROVED REPORT Patient Location: Outpatient PROCEDURES Left heart catheterization Left ventriculogram Selective coronary angiogram INDICATION Abnormal Myoview, Angina pectoris Informed consent was obtained prior to the procedure. COMPLICATIONS NONE Estimated Blood Loss: LESS THAN 10 ML TECHNIQUE One percent lidocaine used to anesthetize the right anterior aspect of the wrist. The right radial artery was accessed via the Seldinger technique. A 6 Wolof sheath was placed in the right radial artery. 2.5 mg of Verapamil, 800 mcg of nitroglycerin, 1mg Lidocaine and 5000 U Heparin were given through the arterial sheath. The JL3 catheter was also used to perform left heart catheterization, left ventriculogram and selective coronary angiogram. At the end of the procedure the sheath was removed good hemostasis was achieved using Traclet band, patient was transferred to the postop holding area in stable condition. ANGIOGRAPHIC RESULTS The left main artery Normal The left anterior descending artery Normal accompanied by PASCUAL II flow The circumflex artery Dominant angiographically normal with PASCUAL II flow The right coronary artery Nondominant normal PASCUAL II flow The PRICE ventriculogram reveals Normal 65% The left ventricular end-diastolic pressure 10 to 15 mmHg IMPRESSION Angiographically normal coronary arteries accompanied by diffuse PASCUAL-2 flow consistent with endothelial dysfunction Normal ejection fraction Normal LVEDP PLAN 1. Medical management for endothelial dysfunction Electronically signed by : Ac Page MD 04/12/2025 09:56:25
[2025-04-12 08:43] LABS: Hematocrit 42.6 % (37.0-47.0); Hemoglobin 14.1 g/dL (12.2-16.2); Immature Granulocytes % 0.2 %; Mean Corpuscular HGB Conc 33.1 g/dL (31.8-35.4); Mean Corpuscular Hemoglobin 29.3 pg (27.0-31.2); Mean Corpuscular Volume 88.6 fl (81-99); Nucleated Red Blood Cells % 0 %; Platelet Count 287 K/mm3 (142-424); Red Blood Count 4.81 M/mm3 (4.20-5.40); Red Cell Distribution Width-SD 44.3 fL; White Blood Count 6.2 K/mm3 (4.8-10.8)
[2025-04-12 08:49] LABS: Chloride 102 mmol/L (98-107); Potassium 3.9 mmoL/L (3.5-5.1); Sodium 137 mmol/L (136-145)
[2025-04-12 08:52] LABS: Anion Gap 9.9 mEq/L (5-15); Blood Urea Nitrogen 14 mg/dl (7-17); Calcium 9.4 mg/dl (8.4-10.2); Carbon Dioxide 29 mmol/L (22.0-30.0); Creatinine Clearance Estimated 66 mL/min (50-200); Creatinine,Serum 1.00 mg/dl (0.52-1.04); Estimated Glomerular Filt Rate 56 ml/min (>60); GFR (African American) 67 ML/MIN (>60); Glucose 100 mg/dl (74-100)
[2025-04-12 09:01] LABS: INR 1.12 (0.9-1.1); Prothrombin Time 12.3 seconds (10.1-12.5)
[2025-04-12] MEDS: NITROGLYCERIN 800MCG/8ML SYR (CATH LAB) 800 MCG IA (09:34)
[2025-04-12] MEDS: 0.9 % SODIUM CHLORIDE 500 ML 25 ML IV (09:34)
[2025-04-12] MEDS: HEPARIN 1,000 UNITS/500ML NS (CATH LAB) 3000 UNIT IV (09:34)
[2025-04-12] MEDS: LIDOCAINE 1% 10ML MDV 10 ML IJ (09:34)
[2025-04-12] MEDS: VERAPAMIL 2.5MG/ML 2ML VIAL 2.5 MG IV (09:35)
[2025-04-12] MEDS: HEPARIN 1,000 UNITS/ML 10ML VIAL (CATH LAB) 5000 UNIT IV (09:35)
[2025-04-12] MEDS: FENTANYL 100MCG/2ML VIAL 50 MCG IV (09:36)
[2025-04-12] MEDS: MIDAZOLAM HCL 1MG/ML 5ML VIAL 1 MG IV (09:36)
[2025-04-12] MEDS: IOPAMIDOL-370 (76%);100ML BOTTLE 50 ML IV (12:05)
== END 2025-04-12 12:56 | disposition home or self-care (01) ==
LOC: CATHLAB 08:22
PROVIDERS: PCP Internal Medicine; Visit Provider Internal Medicine
PROC: 4A023N7 Measurement of Cardiac Sampling and Pressure, Left Heart, Percutaneous Approach (ICD-10-PCS; CPT 93452; principal; 2025-04-12 08:30)
DX: R93.1 Abnormal findings on diagnostic imaging of heart and coronary circulation (principal); R94.31 Abnormal electrocardiogram [ECG] [EKG]; I48.91 Unspecified atrial fibrillation; R00.2 Palpitations; I44.2 Atrioventricular block, complete; K21.9 Gastro-esophageal reflux disease without esophagitis; I10 Essential (primary) hypertension; Z96.659 Presence of unspecified artificial knee joint; Z79.01 Long term (current) use of anticoagulants; Z79.899 Other long term (current) drug therapy; Z82.49 Family history of ischemic heart disease and other diseases of the circulatory system
CPT/HCPCS: 80048; 85025; 85610; 93458; 99152; C1725; C1769; J1200; J1644; J2003; J3010; J7040; Q9967

== ENCOUNTER 2025-04-21 09:53 | Outpatient (CLI) | payer MEDICARE, SELFPAY ==
--- OUTSIDE RECORDS SUMMARY | 2025-04-21 10:05 | XMS_ITS ---
Author Organization Unknown ENCOUNTERS Encounter Performer Location Date Diagnosis Diagnosis Status Emergency [facility] [address] [facility] [address] [place] [address] [id number] GABRIELE Pre Admit [facility] [address] [facility] [address] [place] [address] [id number] Pre Admit [facility] [address] [facility] [address] [place] [address] [id number] Emergency [facility] [address] [facility] [address] [place] [address] [id number] GABRIELE Emergency [facility] [address] [facility] [address] [place] [address] [id number] GABRIELE Pre Admit [facility] [address] [facility] [address] [place] [address] [id number] Emergency [facility] [address] [facility] [address] [place] [address] [id number] GABRIELE Emergency [facility] [address] [facility] [address] [place] [address] [id number] GABRIELE Emergency [facility] [address] [facility] [address] [place] [address] [id number] GABRIELE *Note: Encounters from your own facility or health system may be excluded. Allergies, Adverse Reactions, Alerts Allergen Type Severity Identification Date meperidine drug allergy 0 [id number] Medications Name Date Quantity Days Supplied [facility] Number
[2025-04-21 11:20] LABS: PHA INR Fingerstick 1.9 (0.9-1.1)
== END 2025-04-21 11:35 ==
LOC: ACC 09:54
PROVIDERS: PCP Internal Medicine; Visit Provider Nurse Practitioner
DX: I48.91 Unspecified atrial fibrillation (principal); Z79.01 Long term (current) use of anticoagulants
CPT/HCPCS: 85610; 99211; G0463

== ENCOUNTER 2025-06-01 09:48 | Outpatient (CLI) | payer MEDICARE, SELFPAY ==
[2025-06-01 14:22] LABS: PHA INR Fingerstick 2.7 (0.9-1.1)
== END 2025-06-01 14:39 ==
PROVIDERS: PCP Internal Medicine; Visit Provider Physician Assistant
DX: I48.91 Unspecified atrial fibrillation (principal); Z79.01 Long term (current) use of anticoagulants
CPT/HCPCS: 85610; 99211; G0463